=== PATIENT | female | born 1960 | race Caucasian/White ===

== ENCOUNTER 2018-11-28 18:14 | Emergency (ER) | payer BC, SELFPAY ==
[2018-11-28 18:14] VITALS: BP 183/102; PULSE 112; RESP 16; TEMP 36.6; O2SAT 99; BMI 34.4
[2018-11-28 19:16] LABS: Absolute Lymphocyte Count 1.78 X10^3/ul (0.83-4.51); Absolute Neutrophil Count 4.5 X10^3/uL (2.0-7.7); Basophil# 0.01 X10^3/uL; Basophil% 0.1 % (0-1); Eosinophil# 0.14 X10^3/uL; Hematocrit 40.6 % (37-47); Hemoglobin 13.4 g/dl (12.0-15.0); Lymphocyte # 1.78 X10^3/ul (4.0); Lymphocyte % 26.1 % (19-41); Mean Corpuscular Hgb 28.5 pg (27.0-32.0); Mean Corpuscular Volume 86.2 fL (81-99); Monocyte# 0.41 X10^3/uL; Neutrophil # 4.48 X10^3/uL (2.7-7.7); Neutrophil % 65.7 % (47-70); POSITIVE COUNT NO; POSITIVE DIFFERENTIAL NO; POSITIVE MORPHOLOGY NO; Platelet Count 245 K/mm3 (150-450); RBC Distribution Width CV 14.3 % (11.6-14.6); RBC Distribution Width SD 44.5 fl (35.1-43.9); Red Blood Count 4.71 M/mm3 (4.2-5.4); White Blood Count 6.8 K/mm3 (4.4-11.0)
[2018-11-28 19:27] LABS: Anion Gap 9 (5-15); BUN 21 mg/dL (7-18); BUN/Creat Ratio 17.9 RATIO (10-20); Chloride 107 mmol/L (98-107); Creatinine, Serum 1.17 mg/dL (0.55-1.02); EST Glomerular Filtration Rate 51 mL/min (>60); Est Glom Filt Rate - Afr Amer 62 mL/min (>60); Estimated Creatinine Clearance 52.21 ml/min; Glucose 102 mg/dL (74-106); Potassium 3.6 mmol/L (3.5-5.1); Sodium Level 142 mmol/L (136-145)
--- NOTE | 2018-11-28 19:45 | ED.DCSUM_ITS ---
- ER Visit Summary Date of Service: 11/28/18 Chief Complaint: Blood in stool History of Present Illness: The patient is a 58 F presenting with blood in stool. States this started today. She has had 4 episodes of loose stools with bright red blood per rectum. She denies lightheadedness or syncope. She is not on anticoagulants. She denies abdominal pain. Denies nausea, vomiting, diarrhea. Denies other complaints. She has a history of bleeding from a hemorrhoid in the past. Physical Examination: Vitals are stable. Patient is afebrile. Alert no acute distress. HEENT exam is unremarkable. Neck is supple. Lungs are clear and equal bilaterally. Heart is regular rate and rhythm. Abdomen is soft nontender nondistended. No guarding or rebound. Rectal: External hemorrhoid non-thrombosed, no active bleeding Extremities are unremarkable. Skin is warm and dry. No focal neurologic deficit. Remainder of exam is unremarkable. Emergency Department Course and Treatment: Patient is given IV fluids. CBC is unremarkable. Chemistries normal except for BUN 21, creatinine 1.17. Stool is guaiac negative. Patient has remained hemodynamically stable. Initially her heart rate was elevated. She states she has a history of anxiety when in the hospital. She feels well. She is able to ambulate to the bathroom without difficulty. She would prefer to go home with outpatient follow-up. Discussed with Dr. López. Patient will follow-up for an outpatient colonoscopy. She is advised signs and symptoms for which to return to ED. Disposition: Discharge home Impression: Hematochezia This note was generated with [employer] dictation software. It may contain incorrect words, spelling, and punctuation that were not noted in review of the chart prior to signing ED Disposition - Plan for ED Patient: Chief Complaint: GI Bleed Instructions: ED Hemorrhoids, ED Hematochezia Stable Referrals: Sloane Abernathy MD [Primary Care Provider] - Marcos Andrew MD [STAFF PHYSICIAN] -
[2018-11-28] MEDS: 0.9% Normal Saline 1,000 ML 999 ML IV (20:01)
[2018-11-28 20:33] VITALS: BP 171/101; PULSE 113; RESP 16; O2SAT 100
--- NOTE | 2018-11-28 21:10 | ED.DEP ---
ED Disposition - Plan for ED Patient: Chief Complaint: GI Bleed Instructions: ED Hemorrhoids, ED Hematochezia Stable Referrals: Sloane Abernathy MD [Primary Care Provider] - Marcos Andrew MD [STAFF PHYSICIAN] -
== END 2018-11-28 21:34 | disposition home or self-care (01) ==
PROVIDERS: Emergency Provider Emergency Medicine; Family Provider Family Medicine; PCP Family Medicine
DX: K92.1 Melena (principal); K64.4 Residual hemorrhoidal skin tags; I10 Essential (primary) hypertension; Z85.3 Personal history of malignant neoplasm of breast
CPT/HCPCS: 80048; 82274; 85025; 96360; 99283; J7030; A4216

== ENCOUNTER 2018-12-20 08:13 | Day surgery (SDC) | payer BC, SELFPAY ==
[2018-12-08 09:27] VITALS: BMI 34.4
[2018-12-20 08:36] VITALS: BP 168/82; PULSE 105; RESP 18; TEMP 37.1; O2SAT 95; BMI 34.0
--- NOTE | 2018-12-20 09:15 | COLBX_PTH ---
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 Marcos Andrew MD : 1960 BED: DIS: 12/20/2018 SPEC #: [id number] RECD: 12/20/18 09:36 STATUS: KATIE REAlexandro #: [id number] MARY: 12/20/18 09:[address]: Marcos Andrew DEPT: SURGICAL PATHOLOGY RECD BY: Brian Morley ENTERED: 12/20/18 11:03 SP TYPE: COLON BX OTHR DR: Dr. Sloane Abernathy MD Tissues: COLON BIOPSY Procedures: Surgery Specimen Level IV HEADER OPERATION: Colonoscopy PRE-OP DIAGNOSIS: Rectal bleeding TISSUE SUBMITTED: Random colon biopsies MICROSCOPIC DIAGNOSIS Colon, random biopsy: No pathologic diagnosis. AM:toshia 12/21/18 MICROSCOPIC DESCRIPTION Slides are reviewed. GROSS DESCRIPTION Received in fixative is one container labeled with the patient's name and designated random colon biopsy. The specimen consists of multiple irregular fragments of light jarquin soft tissue that in aggregate measure 1 x 0.3 x 0.1 cm. The specimen is totally submitted in one cassette. / AM:toshia 12/20/18 TC:5 CPT: 23559
[2018-12-20 09:18] VITALS: BP 105/65; BP 168/82; PULSE 96; RESP 18; TEMP 36.4; O2SAT 96
[2018-12-20 09:23] VITALS: BP 117/68; BP 168/82; PULSE 89; RESP 17; O2SAT 97
[2018-12-20 09:28] VITALS: BP 121/76; BP 168/82; PULSE 90; RESP 18; O2SAT 98
[2018-12-20 09:33] VITALS: BP 136/88; BP 168/82; PULSE 89; RESP 17; TEMP 36.6; O2SAT 99
[2018-12-20 09:50] VITALS: BP 168/82
--- NOTE | 2018-12-20 12:47 | OP.ENDO_ITS ---
Patient Name: Tamara Paul Procedure Date: 12/20/2018 8:58 AM Date of : 1960 Age: 58 Procedure: Colonoscopy Indications: Rectal bleeding Providers: Marcos Andrew MD Medicines: See the Anesthesia note for documentation of the administered medications Patient Profile: This is a 58 year old female. Refer to note in patient chart for documentation of history and physical. Last Colonoscopy: date unknown. Unable to locate last colonoscopy report. Complications: No immediate complications. Procedure: Pre-Anesthesia Assessment: - Prior to the procedure, a History and Physical was performed, and patient medications and allergies were reviewed. The patient's tolerance of previous anesthesia was also reviewed. The risks and benefits of the procedure and the sedation options and risks were discussed with the patient. All questions were answered, and informed consent was obtained. Prior Anticoagulants: The patient has taken no previous anticoagulant or antiplatelet agents. ASA Grade Assessment: II - A patient with mild systemic disease. After reviewing the risks and benefits, the patient was deemed in satisfactory condition to undergo the procedure. After I obtained informed consent, the scope was passed under direct vision. Throughout the procedure, the patient's blood pressure, pulse, and oxygen saturations were monitored continuously. The colonoscope was introduced through the anus and advanced to the cecum, identified by appendiceal orifice and ileocecal valve. The colonoscopy was performed without difficulty. The patient tolerated the procedure well. The quality of the bowel preparation was good. Scope In: 9:04:14 AM Scope Withdrawal Time 0 hours 6 minutes 3 seconds Scope Out: 9:14:46 AM Total Procedure Duration Time 0 hours 10 minutes 32 seconds Findings: The colon (entire examined portion) appeared normal. Biopsies for histology were taken with a cold forceps from the entire colon for evaluation of microscopic colitis. Non-bleeding internal hemorrhoids were found during retroflexion. The hemorrhoids were moderate and small. The exam was otherwise without abnormality. Impression: - The entire examined colon is normal. Biopsied. - Non-bleeding internal hemorrhoids. - The examination was otherwise normal. Recommendation: - Discharge patient to home. - Resume previous diet. - Continue present medications. - Await pathology results. - Repeat colonoscopy in 5 years for surveillance. - Return to my office in 1 week. Procedure Code(s): --- Professional --- 74854, Colonoscopy, flexible; with biopsy, single or multiple Diagnosis Code(s): --- Professional --- K64.8, Other hemorrhoids K62.5, Hemorrhage of anus and rectum CPT copyright 2017 [employer]. All rights reserved. The codes documented in this report are preliminary and upon documentation manager review may be revised to meet current compliance requirements. MD Marcos Collado MD 12/20/2018 9:19:54 AM This report has been signed electronically. Number of Addenda: 0 Note Initiated On: 12/20/2018 8:58 AM
--- OUTSIDE RECORDS SUMMARY | 2019-02-21 02:54 | XMS RPT_ITS ---
:1960 Author Organization [facility] Care Team Providers Name Role Phone Joana Valencia Attending Unavailable Jolliff, Sloane Primary Care Unavailable Marcos Andrew Attending Unavailable Michela Sloane Referring Unavailable Marcos Andrew Attending Unavailable Marcos Andrew Referring Unavailable Jolliff, Sloane Primary Care Unavailable Dr. Fito Cervantes Attending Unavailable Dr. Fito Cervantes Referring Unavailable Sloane Abernathy Primary Care Unavailable PROBLEMS PROBLEMS DATE TYPE CONDITION / CODE ATTENDING STATUS SOURCE 05/22/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 / D05.92(ICD-10) PROCEDURES PROCEDURES No Procedure Records FoundRESULTS RESULTS OPERATIVE REPORT - Observed: 12/20/2018 Status: F Source: [place] [facility] 12:47 PM [facility] REPOSITORY [facility] Medical Records Department [address] [place] [address] Operative Report - Endoscopy MR#: [id number] Acct: [id number] Name: TAMARA PAUL Rep #: [id number] : 1960 58 From: Marcos Andrew MD PCP: Sloane Abernathy MD Status: DEP [facility] Patient Name: Tamara Paul Procedure Date: 12/20/2018 8:58 AM Date of : 1960 Age: 58 Procedure: Colonoscopy Indications: Rectal bleeding Providers: Marcos Andrew MD Medicines: See the Anesthesia note for documentation of the administered medications Patient Profile: This is a 58 year old female. Refer to note in patient chart for documentation of history and physical. Last Colonoscopy: date unknown. Unable to locate last colonoscopy report. Complications: No immediate complications. Procedure: Pre-Anesthesia Assessment: - Prior to the procedure, a History and Physical was performed, and patient medications and allergies were reviewed. The patient's tolerance of previous anesthesia was also reviewed. The risks and benefits of the procedure and the sedation options and risks were discussed with the patient. All questions were answered, and informed consent was obtained. Prior Anticoagulants: The patient has taken no previous anticoagulant or antiplatelet agents. ASA Grade Assessment: II - A patient with mild systemic disease. After reviewing the risks and benefits, the patient was deemed in satisfactory condition to undergo the procedure. After I obtained informed consent, the scope was passed under direct vision. Throughout the procedure, the patient's blood pressure, pulse, and oxygen saturations were monitored continuously. The colonoscope was introduced through the anus and advanced to the cecum, identified by appendiceal orifice and ileocecal valve. The colonoscopy was performed without difficulty. The patient tolerated the procedure well. The quality of the bowel preparation was good. Scope In: 9:04:14 AM Scope Withdrawal Time 0 hours 6 minutes 3 seconds Scope Out: 9:14:46 AM Total Procedure Duration Time 0 hours 10 minutes 32 seconds Findings: The colon (entire examined portion) appeared normal. Biopsies for histology were taken with a cold forceps from the entire colon for evaluation of microscopic colitis. Non-bleeding internal hemorrhoids were found during retroflexion. The hemorrhoids were moderate and small. The exam was otherwise without abnormality. Impression: - The entire examined colon is normal. Biopsied. - Non-bleeding internal hemorrhoids. - The examination was otherwise normal. Recommendation: - Discharge patient to home. - Resume previous diet. - Continue present medications. - Await pathology results. - Repeat colonoscopy in 5 years for surveillance. - Return to my office in 1 week. Procedure Code(s): --- Professional --- 70123, Colonoscopy, flexible; with biopsy, single or multiple Diagnosis Code(s): --- Professional --- K64.8, Other hemorrhoids K62.5, Hemorrhage of anus and rectum CPT copyright 2017 [employer]. All rights reserved. The codes documented in this report are preliminary and upon certified professional coder review may be revised to meet current compliance requirements. MD Marcos Collado MD 12/20/2018 9:19:54 AM This report has been signed electronically. Number of Addenda: 0 Note Initiated On: 12/20/2018 8:58 AM 12/20/18 1246 Date Marcos Andrew MD Cosigner Signature: Date (if indicated) CC: Sloane Abernathy MD; Marcos Andrew MD Date Dictated: 12/20/18 0858 Date Transcribed: Hydrogenation Operator: DP Signed COLON BIOPSY (CHOOSE Observed: 12/20/2018 Status: F Source: [facility]) 9:15 AM [facility] REPOSITORY Patient: TAMARA PAUL : 1960 (58/F) Acct Num: [id number] Phys: Marcos Andrew MD Unit Num: [id number] Loc: EN Specimen: [id number] Received: 12/20/18935 Spec Type: COLON BX TISSUES 1 TISSUES: COLON BIOPSY GROSS DESCRIPTION Received in fixative is one container labeled with the patient's name and designated random colon biopsy. The specimen consists of multiple irregular fragments of light jarquin soft tissue that in aggregate measure 1 x 0.3 x 0.1 cm. The specimen is totally submitted in one cassette. / AM:rg 12/20/18 TC:5 CPT: 88585 HEADER OPERATION: Colonoscopy PRE-OP DIAGNOSIS: Rectal bleeding TISSUE SUBMITTED: Random colon biopsies MICROSCOPIC DESCRIPTION Slides are reviewed. MICROSCOPIC DIAGNOSIS Colon, random biopsy: No pathologic diagnosis. AM:toshia 12/21/18 Signed Mitul Huff, DO 12/21/18 <signature on file> Performed By: #### PCOLBX #### [facility] [address] [place], [address] SURGERY VISIT REPORT Observed: 12/11/2018 Status: F Source: [place] 12:07 PM [facility] REPOSITORY [facility] [address] [place] [address] OFFICE VISIT Date of Service: 12/08/18 MR#: [id number] Acct: [id number] Name: STEVECHASTITYDEMETRIUSTAMARA Rep #: [id number] : 1960 Provider: Marcos Andrew MD Age/Sex: 58/F Location: [facility] Status: Signed Intake Vital Signs12/08/18 Body Mass Index (BMI) 34.4 12/08/18 Height 5 ft 7 in 12/08/18 Weight: 218 lb Intake Visit Reasons: er f/up, rectal bleed Pari Mutuel Clerk Required: No Is patient in pain?: No Allergies Penicillins Allergy (Verified 12/08/18 09:19) Swelling tetracycline Allergy (Verified 12/08/18 09:19) Hives Medications Amlodipine Besylate 5 mg PO DAILY 10/18/16 [History Confirmed 12/08/18] Cetirizine HCl [Zyrtec] 10 mg PO DAILY 10/18/16 [History Confirmed 12/08/18] aspirin 81 mg tablet,delayed release 81 mg PO DAILY 12/08/18 [History Confirmed 12/08/18] calcium carbonate 600 mg calcium (1,500 mg) tablet 600 mg PO DAILY tab 12/08/18 [History Confirmed 12/08/18] omega-3 fatty acids 1,000 mg capsule PO cap 12/08/18 [History Confirmed 12/08/18] PFSH Medical History Hemorrhoids (Acute) History of breast cancer (Acute) Rectal bleed (Acute) Hypertension (Chronic) Surgical History H/O: hysterectomy (Acute) History of lumpectomy of left breast (Acute) History of tonsillectomy (Acute) Family History Father Colon cancer Hypertension Kidney disease Social History Smoking Status: Never smoker alcohol intake: never substance use type: does not use HPI HPI HPI: TAMARA PAUL, is a 58 F who presents to the office today for evaluation for rectal bleeding. Patient was seen in the emergency department at [facility] on November 28, 2018. She stated that it started that day and she had 4 episodes of loose stools with bright red blood per rectum. She was not having any lightheadedness nor syncope. She is not on any anticoagulations. She was denying abdominal pain she had no nausea vomiting. In the emergency department she was noted to have a BUN of 21 and a creatinine of 1.17 The emergency room set up a follow-up with Dr. López the patient decided to follow-up with me instead. ROS General General: Yes breast cancer; no weight change, appetite, fatigue, colon cancer or weakness HEENT HEENT: No difficulty swallowing, eye injury, eye surgery, swollen glands or hoarseness Endo Endocrine: No thyroid disease, diabetes mellitus, thyroid cancer, Hair loss, heat intolerance or cold intolerance Skin Skin: No rash or changing moles Breast Breast: No left breast lump, right breast lump, nipple discharge, breast pain, abnormal mammogram, abnormal US or breast enlargement Musc Musculoskeletal: No back problems, arthritis, rheumatoid arthritis, gout or joint pain Cardio Cardiovascular: Yes high blood pressure; no murmur, pacemaker, heart disease, atrial fibrillation, heart attack, heart stent, palpitations, shortness of breat with exertion or chest pain Psych Psychiatric: No depression, anxiety or hearing voices Resp Respiratory: No shortness of breath, No sleep apnea, No cough, No COPD, No asthma, No emphysema, No wheezing Gastro Gastrointestinal: No abdominal pain, No nausea or vomiting, No diarrhea, No constipation, No blood in stool, No acid reflux, Yes hemorrhoids, No ulcers, No gallbladder problem, No black,tarry stools Casey Hematologic: No blood thinners, No blood disorders, No bleeding, No anemia, No blood clots Neuro Neurologic: No system reviewed and no additional complaints, except as docu, No as per HPI, No abnormal walking, No abnormal hearing, No abnormal movements, No abnormal speech, No behavioral changes, No burning sensations, No confusion, No seizure-like activity, No unsteadiness, No dizziness, No localized weakness, No frequent falls, No headache(s), No lack of coordination, No loss of vision, No memory loss, No numbness, No other visual disturbances, No radiating pain, No restless legs, No sensory deficit, No fainting, No tingling, No tremor(s), No weakness, Yes other (stroke/TIA) Exam Const General: well developed, no acute distress, well hydrated Orientation: oriented to person, oriented to place, oriented to time [facility] Head: normocephalic, atraumatic Ears: external ears normal Mouth: moist mucous membranes Eyes Sclera: sclerae normal Pupils: normal by confrontation Neck Neck: no lymphadenopathy noted Neck mass: No Thyroid: symmetrical, thyroid normal Chest Chest palpation AND inspection: normal inspection of the chest Breast Palpation: No nipple discharge Resp Effort AND Inspection: normal respiratory effort Auscultation: clear to auscultation bilaterally Percussion: percussion normal Cardio Rate: regular rate Rhythm: regular rhythm Heart Sounds: no murmurs GI Palpation: soft, no masses, no hepatosplenomegaly, nontender Rectal Exam: other Other: Rectal exam deferred. Extrem General: no clubbing, cyanosis or edema, normal to inspection Assessment AND Plan Problems 1. Rectal bleeding K62.5 Plan I have discussed the above with the patient. I have offered the patient colonoscopy for evaluation. I have explained the risks/benefits of the procedure and described the procedure. I have discussed the risks with the patient, including but not limited to: infection, bleeding, perforation of the GI tract requiring emergency surgery, inability to complete the procedure, injury to any internal organs, complications of anesthesia, etc. - the patient understands and agrees to proceed. I have answered all the patient's questions to the patient's satisfaction and the patient has no further questions. The patient has been given instructions for the colon cleansing preparation. Coding Level of Care Code Off vis,new,level 3 Diagnoses Rectal bleeding K62.5 12/11/18 1207 <Electronically signed by Marcos Andrew MD> Date Marcos Andrew MD Cosigner Signature: Date (if applicable) CC: Sloane Abernathy MD EMERGENCY DEPARTMENT Observed: 11/28/2018 Status: F Source: [place] SUMMARY 9:18 PM [facility] REPOSITORY [facility] Medical Records Department [address] [place] [address] Emergency Department Summary 11/28/18 1944 MR#: [id number] Acct: [id number] Name: TONI PAULALYSSA Storey Rep #: [id number] : 1960 58 From: Joana Valencia MD PCP: Sloane Abernathy MD Status: REG ER - ER Visit Summary Date of Service: 11/28/18 Chief Complaint: Blood in stool History of Present Illness: The patient is a 58 F presenting with blood in stool. States this started today. She has had 4 episodes of loose stools with bright red blood per rectum. She denies lightheadedness or syncope. She is not on anticoagulants. She denies abdominal pain. Denies nausea, vomiting, diarrhea. Denies other complaints. She has a history of bleeding from a hemorrhoid in the past. Physical Examination: Vitals are stable. Patient is afebrile. Alert no acute distress. HEENT exam is unremarkable. Neck is supple. Lungs are clear and equal bilaterally. Heart is regular rate and rhythm. Abdomen is soft nontender nondistended. No guarding or rebound. Rectal: External hemorrhoid non-thrombosed, no active bleeding Extremities are unremarkable. Skin is warm and dry. No focal neurologic deficit. Remainder of exam is unremarkable. Emergency Department Course and Treatment: Patient is given IV fluids. CBC is unremarkable. Chemistries normal except for BUN 21, creatinine 1.17. Stool is guaiac negative. Patient has remained hemodynamically stable. Initially her heart rate was elevated. She states she has a history of anxiety when in the hospital. She feels well. She is able to ambulate to the bathroom without difficulty. She would prefer to go home with outpatient follow-up. Discussed with Dr. López. Patient will follow-up for an outpatient colonoscopy. She is advised signs and symptoms for which to return to ED. Disposition: Discharge home Impression: Hematochezia This note was generated with [employer] dictation software. It may contain incorrect words, spelling, and punctuation that were not noted in review of the chart prior to signing ED Disposition - Plan for ED Patient: Chief Complaint: GI Bleed Instructions: ED Hemorrhoids, ED Hematochezia Stable Referrals: Sloane Abernathy MD [Primary Care Provider] - Marcos Andrew MD [STAFF PHYSICIAN] - What to do if you have Problems For any increased pain, shortness of breath, bleeding, nausea or vomiting, chest pain, or any unexpected problems, contact your Primary Care Provider. Call [facility] ([phone]) or report to the closest Emergency Room. Call 911 if necessary. 11/28/182117 <Electronically signed by Joana Valencia MD> Date Joana Valencia MD Cosigner Signature (If Indicated): Date CC: Sloane Abernathy MD DISCHARGE INSTRUCTION Observed: 11/28/2018 Status: F Source: [place] 9:10 PM [facility] REPOSITORY [facility] Medical Records Department [address] [place] [address] Discharge Instruction 11/28/182109 MR#: [id number] Acct: [id number] Name: TAMARA PAUL Cordelia Rep #: [id number] : 1960 58 From: Joana Valencia MD PCP: Sloane Abernathy MD Status: REG ER ED Disposition - Plan for ED Patient: Chief Complaint: GI Bleed Instructions: ED Hemorrhoids, ED Hematochezia Stable Referrals: Sloane Abernathy MD [Primary Care Provider] - Marcos Andrew MD [STAFF PHYSICIAN] - What to do if you have Problems For any increased pain, shortness of breath, bleeding, nausea or vomiting, chest pain, or any unexpected problems, contact your Primary Care Provider. Call [facility] ([phone]) or report to the closest Emergency Room. Call 911 if necessary. 11/28/182109 <Electronically signed by Joana Valencia MD> Date Joana Valencia MD Cosigner Signature (If Indicated): Date CC: Sloane Abernathy MD Observed: 11/28/2018 Status: F Source: [place] STOOL OCCULT BLOOD 7:19 PM [facility] IFOB REPOSITORY STOB iFOB Occult Blood Negative Performed By: #### M100.7900 #### [facility] [address] [place], [address] CBC W/DIFF, AUTOMATED Collected: 11/28/2018 Status: F Source: [place] 7:06 PM [facility] REPOSITORY TYPE CODE TESTS RESULT OUT OF RANGE REFERENCE UNITS LAB L100.1000 4.4-11.0 K/mm3 Normal WBC 6.8 LAB L100.1200 4.2-5.4 M/mm3 Normal RBC 4.71 LAB L100.1300 12.0-15.0 g/dl Normal HGB 13.4 LAB L100.1400 37-47 % Normal HCT 40.6 LAB L100.1500 81-99 fL Normal MCV 86.2 LAB L100.1600 27.0-32.0 pg Normal MCH 28.5 LAB L100.1700 32-36 g/gl Normal MCHC 33.0 LAB L100.1810 11.6-14.6 % Normal RDW CV 14.3 LAB L100.1820 35.1-43.9 fl High RDW SD 44.5 LAB L100.1900 150-450 K/mm3 Normal PLT 245 LAB L100.2000 6.2-12.0 fl Normal MPV 10.0 LAB L100.2100 47-70 % Normal NEUT% 65.7 LAB L100.2200 19-41 % Normal LY% 26.1 LAB L100.2300 0-10 % Normal MONO% 6.0 LAB L100.2400 0-5 % Normal EO% 2.0 LAB L100.2500 0-1 % Normal BASO% 0.1 LAB L100.2550 0.0-0.9 % Normal IM GRAN % 0.100 Result Comment: IG% - Immature Granulocytes (promyelocytes, myelocytes and metamyelocytes) > 1% indicates that a LEFT SHIFT is Present. LAB L100.2620 2.0-7.7 X10 3/uL Normal Absolute Neut 4.5 LAB L100.2720 0.83-4.51 X10 3/ul Normal Absolute Lymph 1.78 Performed By: #### L100.0100 #### [facility] [address] [place], [place], [address] BASIC METABOLIC Collected: 11/28/2018 Status: F Source: [place] PROFILE (BMP) 7:06 PM [facility] REPOSITORY TYPE CODE TESTS RESULT OUT OF RANGE REFERENCE UNITS LAB L501.0100 74-106 mg/dL Normal GLU 102 Result Comment: Fasting Glucose result from 100 to 125 mg/dL suggests IMPAIRED HOMEOSTASIS per A.D.A. criteria. Please note revised GLUCOSE reference range effective 2017. LAB L501.1000 7-18 mg/dL High BUN 21 LAB L501.1100 0.55-1.02 mg/dL High CREAT,SERUM 1.17 Result Comment: The validity of the calculated GFR AND GFRAA in patients over 70 years has not been determined. Clinical correlation is essential. LAB L501.1110 >60 mL/min Low EST GFR 51 Result Comment: Non- GFR Calc LAB L501.1115 >60 mL/min Normal EST GFR - AA 62 Result Comment: GFR Calc LAB L501.1255 ml/min Normal Estimated CRCL 52.21 LAB L501.1300 10-20 RATIO Normal BUN/CRE 17.9 LAB L501.2200 8.5-10 mg/dL Normal .1 CA 9.0 LAB L501.5300 136-14 mmol/L Normal 5 NA 142 LAB L501.5600 3.5-5. mmol/L Normal 1 K 3.6 LAB L501.5900 98-107 mmol/L Normal CL 107 LAB L501.6100 21.0-3 mmol/L Normal 2.0 CO2 26.0 LAB L501.6200 5-15 Normal GAP 9 Performed By: #### L500.2500 #### [facility] [address] [place], [place], [address] BREAST ULTRASOUND Observed: 05/22/2018 Status: F Source: [place] 4:13 PM [facility] REPOSITORY Patient Name: TAMARA PAUL STUDY: DIGITAL DIAG MAMM BILAT WITH KRISTEN; BREAST ULTRASOUND; 05/22/2018 3:52 pm; 05/22/2018 4:13 pm ACCESSION NUMBER(S): [id number]; [id number] ORDERING CLINICIAN: FITO CERVANTES INDICATION: Signs/Symptoms: hx of left breast cancer.Feels a lump.; MM040. Strong family history of breast cancer, mother diagnosed age 62. Personal history of left breast cancer status post lumpectomy and radiation therapy in 2002. Patient complains of a new nontender right breast lump times several days. COMPARISON: 11/30/2016 and 11/03/2015 FINDINGS: 2D and tomosynthesis images were reviewed at 1 mm slice thickness. The breast tissue is heterogeneously dense, which may obscure small masses. The patient placed a BB overlying the lateral anterior breast, which is the site of the palpable lump. There is no suspicious mammographic finding. No suspicious masses or calcifications are identified bilaterally. Right breast ultrasound. Targeted ultrasound with elastography was performed. Ultrasound was performed by both the trained teacher education instructor and Dr. Parikh. At the site of palpable concern at 8:30 3 cm from the nipple, there is duct ectasia which extends to the subdermal region. Negative for an intraductal mass. The duct is avascular and is soft on elastography. This correlates with the palpable lump. There are other adjacent mildly ectatic ducts in this region. IMPRESSION: No mammographic evidence of malignancy . The area of palpable concern in the right breast corresponds with a benign ectatic duct. Recommend the patient return to annual screening mammography. BI-RADS CATEGORY: Category: 2 - Benign. Recommendation: 1 Year Screening. Patient letter sent SNORMS Electronically signed by: COMFORT PARIKH MD DIGITAL DIAG MAMM Observed: 05/22/2018 Status: F Source: [facility] WITH [facility]ST[facility] 3:52 PM HOSPITALS REPOSITORY Patient Name: TAMARA PAUL STUDY: DIGITAL DIAG MAMM BILAT WITH KRISTEN; BREAST ULTRASOUND; 05/22/2018 3:52 pm; 05/22/2018 4:13 pm ACCESSION NUMBER(S): [id number]; [id number] ORDERING CLINICIAN: FITO CERVANTES INDICATION: Signs/Symptoms: hx of left breast cancer.Feels a lump.; MM040. Strong family history of breast cancer, mother diagnosed age 62. Personal history of left breast cancer status post lumpectomy and radiation therapy in 2002. Patient complains of a new nontender right breast lump times several days. COMPARISON: 11/30/2016 and 11/03/2015 FINDINGS: 2D and tomosynthesis images were reviewed at 1 mm slice thickness. The breast tissue is heterogeneously dense, which may obscure small masses. The patient placed a BB overlying the lateral anterior breast, which is the site of the palpable lump. There is no suspicious mammographic finding. No suspicious masses or calcifications are identified bilaterally. Right breast ultrasound. Targeted ultrasound with elastography was performed. Ultrasound was performed by both the trained teacher education instructor and Dr. Parikh. At the site of palpable concern at 8:30 3 cm from the nipple, there is duct ectasia which extends to the subdermal region. Negative for an intraductal mass. The duct is avascular and is soft on elastography. This correlates with the palpable lump. There are other adjacent mildly ectatic ducts in this region. IMPRESSION: No mammographic evidence of malignancy . The area of palpable concern in the right breast corresponds with a benign ectatic duct. Recommend the patient return to annual screening mammography. BI-RADS CATEGORY: Category: 2 - Benign. Recommendation: 1 Year Screening. Patient letter sent SNORMS Electronically signed by: COMFORT PARIKH MD ALLERGIES ALLERGIES DATE TYPE / CODE NAME / CODE REACTION SEVERITY SOURCE 12/18/2018 Drug Penicillins/ Swelling Unknown [facility] Allergy/4160 [id number]( Hospital 81612(SNOMED XNORM) Repository CT) 12/18/2018 Drug tetracycline Hives Unknown [facility] Allergy/4160 /[id number]( Hospital 06221(SNOMED RXNORM) Repository CT) ENCOUNTERS ENCOUNTERS ADMIT/DISCHARGE ACCOUNT ADMITTING ENCOUNTER LOCATION SOURCE NUMBER CLASS 12/20/2018/12/20/19 [id number] Ambulatory [facility] ing:ENRoom: Repository AC17 12/08/2018/12/08/19 [id number] Ambulatory BMSBuilding:B [facility] [place] 11/28/2018/11/28/19 [id number] Emergency [place] [facility] ing:ED Repository 05/22/2018 [id number] Ambulatory [facility] Repository PAYERS PAYERS ENCOUNTER GUARANTOR PAYER SUBSCRIBER SOURCE 12/20/2018 TAMARA Storey Primary BRIAN D [facility] [id number] Insurance:ANTHEMPolic [place] [facility] [place]: [id number] [id number] Repository [address]Nvn: (330) Date:1689-20-03[phone] () [address] [place] [address]PF: 12/20/2018 Secondary NOT GIVENUNK [facility] Insurance:SELF PAY [facility] Number: Effective Repository Date:2018-12-08 12/08/2018 TAMARA D Primary BRIAN D [facility] [id number] Insurance:ANTHEMPolic [place] [facility] [place]: [id number] [id number] Repository [address]Rvy: ([phone]) Date:6821-19-37[phone] () [address] [place] [address] 36549TZ: 12/08/2018 Secondary NOT GIVENUNK [place] Insurance:SELF PAY [facility] [facility] Number: Effective Repository Date:2018-12-07 11/28/2018 [facility] Cordelia RobersonLakeshia [id number] Insurance:MEDICAL ARGABRITEDOB: [place] [id number] [facility] Number[place] Repository [id number]: [phone] [id number] [phone] () Date:[id number] [place] [id number]: 11/28/2018 Secondary NOT GIVENUNK Hostetter Insurance:SELF PAY [facility] Number: Effective Repository Date:2018-11-28 05/22/2018 [facility] ARGABRITEDOB: Insurance:Medical ARGABRITEDOB: [facility] [id number] [facility] Number: [place] [id number]: Date:Plan Name:Health ()
== END 2018-12-20 09:59 | disposition home or self-care (01) ==
LOC: EN 08:14 → AC 08:15
PROVIDERS: Family Provider Family Medicine; PCP Family Medicine; Referring Provider Surgery; Visit Provider Surgery
PROC: 0DJD8ZZ Inspection of Lower Intestinal Tract, Via Natural or Artificial Opening Endoscopic (ICD-10-PCS; CPT 45378; principal; 2018-12-20 09:10)
DX: K62.5 Hemorrhage of anus and rectum (principal); K64.8 Other hemorrhoids; K21.9 Gastro-esophageal reflux disease without esophagitis; Z85.3 Personal history of malignant neoplasm of breast; I10 Essential (primary) hypertension; Z86.73 Personal history of transient ischemic attack (TIA), and cerebral infarction without residual deficits
CPT/HCPCS: 45380; 88305; J7120

== ENCOUNTER → 2019-02-17 08:30 | Outpatient (CLI) | payer BC, SELFPAY ==
[2019-02-13 07:46] VITALS: BMI 34.0
--- NOTE | 2019-02-17 | IMM_PTH ---
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 Marcos Andrew MD : 1960 BED: DIS: SPEC #: [id number] RECD: 02/20/19 11:51 STATUS: KATIE REQ #: [id number] MARY: 02/17/19 00:[address]: Marcos Andrew DEPT: IMMUNOHISTOCHEMISTRY RECD BY: Tania Vasquez ENTERED: 02/20/19 11:52 SP TYPE: IMMUNO OTHR DR: Dr. Sloane Abernathy MD Tissues: Skin of leg, NOS Procedures: SMA (add) Vimentin (add) SMM (add) Pankeratin (initial) P40 (add) S-100 (add) PHYSICIAN & INSTITUTION [place] [id number] SPECIMEN INFORMATION: Tissue Source: Left lower leg lesion, excision Clinical Info: Lesion of subcutaneous tissue Specimen Number: [id number] CPT code: 41856, 26301 x5 METHODOLOGY: Deparaffinized sections of prefer/formalin-fixed tissue or PAP/DQ stained slides are incubated with monoclonal/polyclonal antibodies/oligonucleotide probes. Localization is made via biotin free immunoperoxidase method. Appropriate controls are performed and reacted as expected. Results on target cell population are indicated in the following table: RESULTS: ANTIBODY / CLONE RESULT AE1-3 (AE1/AE3/PCK26) negative S-100 (4C4.9) negative Vimentin (V9) positive Actin (1A4) negative Myosin (simms1) negative P40 (BC28) negative These tests were developed and their performance characteristics determined by [facility]. They may not have been cleared or approved by the [place]. Food and Drug Administration. The FDA has determined that such clearance or approval is not necessary. INTERPRETATION: Left lower leg lesion, excision: Consistent with dermatofibroma AM:nory 02/20/19
--- NOTE | 2019-02-17 08:30 | LES_PTH ---
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 Marcos Andrew MD : 1960 BED: DIS: SPEC #: [id number] RECD: 02/17/19 10:52 STATUS: KATIE DEBORAH #: [id number] MARY: 02/17/19 08:[address]: Marcos Andrew DEPT: SURGICAL PATHOLOGY RECD BY: Brian Morley ENTERED: 02/19/19 12:49 SP TYPE: Lesion OTHR DR: Dr. Sloane Abernathy MD Tissues: Skin of leg, NOS Procedures: Surgery Specimen Level IV HEADER OPERATION: Excision left lower leg lesion PRE-OP DIAGNOSIS: Lesion of subcutaneous tissue L98.9 TISSUE SUBMITTED: Left lower leg lesion MICROSCOPIC DIAGNOSIS Lesion of left lower leg, biopsy: Consistent with dermatofibroma. AM:toshia 02/20/19 COMMENT Immunohistochemistry ([id number]) supports the above diagnosis. Case has been reviewed in consultation with Dr. Jimenez who concurs with the above diagnosis. IDC:MARIN MICROSCOPIC DESCRIPTION Slides are reviewed. GROSS DESCRIPTION Received in fixative is one container labeled with the patient's name and designated left lower leg lesion. The specimen consists of a piece of jarquin-white skin with underlying tissue measuring 1 x 0.8 cm and up to 0.5 cm in thickness. There is a brown lesion on the surface measuring 0.5 cm in diameter. The specimen is inked, serially sectioned and submitted entirely in one cassette. / MARIN:toshia 02/19/19 TC:1 CPT: 35054
== END ==
PROVIDERS: Family Provider Family Medicine; PCP Family Medicine; Referring Provider Surgery; Visit Provider Surgery
DX: L98.9 Disorder of the skin and subcutaneous tissue, unspecified (principal)
CPT/HCPCS: 88305; 88341; 88342

== ENCOUNTER → 2019-07-11 10:20 | Outpatient (CLI) | payer BC, SELFPAY ==
[2019-02-13 07:46] VITALS: BMI 34.0
[2019-07-11 12:38] LABS: Anion Gap 7 (5-15); BUN 13 mg/dL (7-18); Calcium,Total 9.3 mg/dL (8.5-10.1); Chloride 104 mmol/L (98-107); Creatinine, Serum 0.76 mg/dL (0.55-1.02); EST Glomerular Filtration Rate 83 mL/min (>60); Est Glom Filt Rate - Afr Amer 101 mL/min (>60); Glucose 91 mg/dL (74-106); Potassium 3.3 mmol/L (3.5-5.1); Sodium Level 139 mmol/L (136-145)
== END ==
PROVIDERS: Family Provider Family Medicine; PCP Family Medicine; Referring Provider Family Medicine; Visit Provider Family Medicine
DX: I10 Essential (primary) hypertension (principal)
CPT/HCPCS: 36415; 80048

== ENCOUNTER → 2020-11-26 16:09 | Outpatient (CLI) | payer BC, SELFPAY ==
[2019-02-13 07:46] VITALS: BMI 34.0
[2020-11-26 18:10] LABS: Anion Gap 6 (5-15); BUN 13 mg/dL (7-18); BUN/Creat Ratio 17.1 RATIO (10-20); Calcium,Total 9.2 mg/dL (8.5-10.1); Chloride 106 mmol/L (98-107); Creatinine, Serum 0.76 mg/dL (0.55-1.02); EST Glomerular Filtration Rate 83 mL/min (>60); Est Glom Filt Rate - Afr Amer 101 mL/min (>60); Glucose 90 mg/dL (74-106); Potassium 3.6 mmol/L (3.5-5.1); Sodium Level 139 mmol/L (136-145)
== END ==
PROVIDERS: PCP Family Medicine; Visit Provider Family Medicine
DX: I10 Essential (primary) hypertension (principal)
CPT/HCPCS: 36415; 80048

== ENCOUNTER 2020-12-04 03:00 | Emergency (ER) | payer BC, SELFPAY ==
[2019-02-13 07:46] VITALS: BMI 34.0
[2020-12-04 03:00] VITALS: BP 162/94; PULSE 111; RESP 16; TEMP 36.9; O2SAT 98; BMI 35.6
[2020-12-04 03:03] VITALS: BP 162/94; PULSE 111; RESP 16; TEMP 36.9; O2SAT 98
--- NOTE | 2020-12-04 03:09 | ED.VIS.GEN ---
History of Present Illness Chief Complaint: Complaint Detail of Chief Complaint: Dysuria, frequency and hematuria Informant: Patient Onset: Yesterday Context: Sudden Onset Timing: Intermittent Quality: Frequency, dysuria and hematuria Location: With urination Current Severity: Not present unless patient is urinating Maximum Severity: Moderate Worsened by: Urination Relieved by: Not urinating Associated Symptoms: No constitutional, GI or back pain Narrative: Patient is a 60-year-old woman with history hypertension, ureterolithiasis and urinary tract infection who presents with dysuria, frequency and hematuria. She denies back pain or flank pain. She denies suprapubic discomfort. She feels pressure when she urinates. She denies fever or chills. She denies nausea or vomiting. She denies rash. She has no other complaints. Prior similar symptoms: Yes Recent Illness/Hospitalization: No - Past Medical History (1) History of hypertension Status: Acute (2) History of kidney stones Status: Acute (3) History of urinary tract infection Status: Acute Past Medical History - Allergies and Home Meds Allergies/Adverse Reactions: Allergies Penicillins Allergy (Verified 12/04/20 03:05) Swelling tetracycline Allergy (Verified 12/04/20 03:05) Hives Primary Care Physician: Sloane Abernathy MD [Primary Care Provider] - Prior records reviewed: Yes Surgical History: noncontributory Lives: With Family Smoking Status: Never smoker Alcohol: None Drugs: None Review of Systems General: Denies: Chills, Fever, Malaise, Subjective Gastrointestinal: Denies: Abdominal pain, Nausea, Vomiting, Diarrhea Genitourinary: Reports: Dysuria, Hematuria, Frequency Musculoskeletal: Denies: Myalgias, Arthralgias, Neck pain, Back pain, Swelling, Extremity Pain Skin: Denies: Rash, Wounds Physical Exam Vital Signs/Narrative: Vital Signs Temp Pulse Resp BP Pulse Ox 12/04/20 03:03 98.5 F 111 H 16 162/94 H 98 12/04/20 03:00 98.5 F 111 H 16 162/94 H 98 Inital Vital Signs reviewed: Yes General: Well nourished, Well developed, Obese Head: Normocephalic, Atraumatic Eyes: Perrl Cardiovascular: Regular rate, Regular rhythm, No murmurs, Normal S1, Normal S2 Respiratory: No distress, CTA bilaterally, Chest nontender Abdomen: Soft, Nontender, Nondistended, Normal bowel sounds, No masses Back: Nontender. Negative for: CVA tenderness Skin: Normal color, No rash Neurological: Alert, Oriented x3, Cranial nerves II-XII grossly intact, Normal Strength, Normal Sensation, Normal Gait Psychological: Normal affect Diagnostic/Tx/Re-eval Laboratory Results 12/04/20 03:08 Urine Color Red Urine Clarity Turbid Urine pH 7.0 Ur Specific [place] 1.015 Urine Protein 100 H Urine Glucose (UA) Normal Urine Ketones 5 H Urine Occult Blood 250 H Urine Nitrite Negative Urine Bilirubin Negative Urine Urobilinogen Normal Ur Leukocyte Esterase 500 H Urine RBC > 100 SEEN Urine WBC 25-50 SEEN Ur Squamous Epith Cells 0 SEEN Urine Bacteria 0 SEEN Urine Mucus 0 SEEN Patient does have evidence of pyuria. There is no bacteria. There may be no bacteria because patient is urinating every 15 to 30 minutes. Will treat with Macrobid and Pyridium. - Medical Decision Making Patient clinically has hemorrhagic cystitis. Will obtain UA to confirm. UA may not be classic since patient reports urinating every 15 to 30 minutes. Since she has no systemic symptoms laboratory tests were not obtained. ED Disposition - Plan for ED Patient: Disposition: Home or Assisted Living Diagnosis: Acute hemorrhagic cystitis Instructions: ED Bladder Infection, Female (Adult) Prescriptions: Nitrofurantoin Macrocrystals [Macrobid] 100 mg PO Q12 #10 cap Transmission Status: Pending to [facility] Phenazopyridine HCl [Pyridium] 200 mg PO TID #10 tab Transmission Status: Pending to [facility] Referrals: Sloane Abernathy MD [Primary Care Provider] - 3-5 Days if not improving
[2020-12-04 03:12] LABS: Bacteria 0 SEEN /hpf (None Seen); Mucous, Urine 0 SEEN /hpf (<or=2+); Squamous Epithelial Cells - UA 0 SEEN /hpf (5-10)
[2020-12-04 03:14] LABS: Color, Urine Red (Yellow); Glucose, Dipstick Normal (Normal); Ketone-Dipstick 5 mg/dl (Negative); Leukocyte Esterase-Dipstick 500 /ul (Negative); Nitrite-Dipstick Negative (Negative); Occult Blood-Urine 250 /ul (Negative); Protein-Dipstick 100 mg/dl (Negative); Specific Gravity, Urine 1.015 (1.002-1.030); Urine Bilirubin Dipstick Negative (Negative); Urine Clarity Turbid (Clear); Urine Urobilinogen Normal (Normal)
[2020-12-04 03:19] LABS: Red Blood Cells-Urine > 100 SEEN /hpf (0-5); White Blood Cells 25-50 SEEN /hpf (0-5)
[2020-12-04] MEDS: Nitrofurantoin Macrocrystals 100 MG Capsule PO (03:23)
[2020-12-04] MEDS: Phenazopyridine 95 MG Tablet 190 MG PO (03:23)
--- NOTE | 2020-12-04 03:31 | ED.VISSUMM ---
- ER Visit Summary Date of Service: 12/04/20 Chief Complaint: [] History of Present Illness: The patient is a 60 F [] Physical Examination: [] Test Results: [] Emergency Department Course and Treatment: [] Treatment Plan: [] Disposition: [] Impression: [] This note was generated with [employer] dictation software. It may contain incorrect words, spelling, and punctuation that were not noted in review of the chart prior to signing ED Disposition - Plan for ED Patient: Disposition: Home or Assisted Living Diagnosis: Acute hemorrhagic cystitis Instructions: ED Bladder Infection, Female (Adult) Prescriptions: Nitrofurantoin Macrocrystals [Macrobid] 100 mg PO Q12 #10 cap Transmission Status: Pending to [facility] Phenazopyridine HCl [Pyridium] 200 mg PO TID #10 tab Transmission Status: Pending to [facility] Referrals: Sloane Abernathy MD [Primary Care Provider] - 3-5 Days if not improving
== END 2020-12-04 03:33 | disposition home or self-care (01) ==
LOC: ED 03:25
PROVIDERS: Emergency Provider Emergency Medicine; PCP Family Medicine
DX: N30.01 Acute cystitis with hematuria (principal); I10 Essential (primary) hypertension; Z87.442 Personal history of urinary calculi; Z88.0 Allergy status to penicillin
CPT/HCPCS: 81001; 87086; 87088; 87186; 99283

== ENCOUNTER 2021-02-10 16:38 | Outpatient (RCR) | payer BC, SELFPAY ==
[2021-02-10] MEDS: COVID-19 VACC, MRNA(PFIZER)/PF 30 MCG/0.3 ML SYRINGE IM (17:09)
[2021-03-03] MEDS: COVID-19 VACC, MRNA(PFIZER)/PF 30 MCG/0.3 ML SYRINGE IM (16:51)
== END 2021-02-10 23:59 ==
LOC: IMMUN 16:38
PROVIDERS: Visit Provider Family Medicine
DX: Z23 Encounter for immunization (principal)
CPT/HCPCS: 0001A; 0002A; 91300

== ENCOUNTER 2021-10-19 23:08 | Emergency (ER) | payer OTHER, SELFPAY ==
[2021-10-19 23:08] VITALS: BP 169/88; PULSE 96; RESP 18; TEMP 36.4; O2SAT 100; BMI 34.9
[2021-10-19 23:10] VITALS: BP 169/88; PULSE 96; RESP 18; TEMP 36.4; O2SAT 100
--- NOTE | 2021-10-19 23:24 | EDS_ITS ---
HPI History of Present Illness Chief Complaint: Complaint Narrative Narrative: Patient is a 60-year-old female who states over the last 1 to 2 days she has noticed increased urinary frequency urgency and dysuria. She denies any vaginal discharge or bleeding concern for vaginal infection. She denies any fevers or chills or flank pain. She states she feels like her symptoms have steadily worsened over the past 24 hours and with concern for infection presents for evaluation. [facility] Medical History Hemorrhoids History of breast cancer History of kidney stones Hypertension Rectal bleed Home Medications amlodipine 5 mg PO DAILY 10/18/16 [History Last Taken 12/20/18 06:45] cetirizine [Zyrtec] 10 mg PO DAILY 10/19/21 [History Last Taken Unknown] multivitamin 1 tab PO DAILY 10/19/21 [History Last Taken Unknown] phenazopyridine [Pyridium] 200 mg PO TID 2 Days #6 tab 10/20/21 [Rx Last Taken Unknown] sulfamethoxazole-trimethoprim [Bactrim DS] 1 tab PO BID 5 Days #10 tab 10/20/21 [Rx Last Taken Unknown] Allergy/AdvReac Type Severity Reaction Status Date / Time Penicillins Allergy Swelling Verified 10/19/21 23:10 tetracycline Allergy Hives Verified 10/19/21 23:10 Family History Father Colon cancer Hypertension Kidney disease Surgical History (Updated 12/04/20 @ 03:[address] Ancelmo Bland MD) H/O: hysterectomy History of lumpectomy of left breast History of tonsillectomy Social History (Updated 03/02/19 @ 12:[address] Marcos Andrew MD) Smoking Status: Never smoker alcohol intake: never substance use type: does not use ROS ROS ED Constitutional Constitutional ED: Denies chills or fever(s) ENT ENT ED: Denies sore throat Cardiovascular Cardiovascular: Denies chest pain Respiratory/Chest Respiratory/Chest: Denies cough or dyspnea Gastrointestinal Gastrointestinal: Denies abdominal pain, diarrhea, nausea or vomiting Genitourinary Genitourinary ED: Reports dysuria and urinary frequency; Denies hematuria Musculoskeletal Musculoskeletal: Denies back pain or myalgias Integumentary Denies rash Neurologic Neurologic: Denies headache(s) EXAM Physical Exam Const Vital Signs: 10/19/21 23:08 10/19/21 23:10 Temperature 97.5 F L 97.5 F L Temperature Source Temporal Temporal Pulse Rate 96 96 Respiratory Rate 18 18 Blood Pressure 169/88 H 169/88 H Blood Pressure Mean 115 115 Pulse Ox 100 100 Oxygen Delivery Method Room Air Room Air Positive well nourished and well developed General Appearance ED: well developed Eyes PERRL and EOMs intact bilaterally Neck supple Resp normal respiratory effort and clear to auscultation bilaterally Cardio regular rate and regular rhythm Rate: other Other Details: Radial pulses are plus 2 out of 4 bilaterally are equal and symmetric GI non-tender, non-distended and no masses GI Narrative: There is mild pain on palpation in the suprapubic region but no voluntary guarding or rigidity no pulsatile mass Auscultation: normoactive bowel sounds Palpation: soft Back/Spine no CVA tenderness Extremity normal to inspection Neuro oriented x3 and CN's II-XII intact bilaterally Sensorium / Orientation: alert Motor Exam: strength 5/5 throughout Psych mental status grossly normal Skin no rashes or lesions noted MDM MDM MDM Narrative Medical decision making narrative: Patient presented to the ER afebrile. She had no CVA pain and a soft nonsurgical abdomen with mild pain with palpation to the suprapubic region. This coupled with her symptoms of frequency urgency and dysuria are most consistent with a UTI so I felt only need for urine sample at this time. Urine sample showed just rare bacteria but there is no sterile pyuria or red blood cells seen on the microscope. Therefore this time I feel patient clinically has a UTI and is most likely feeling symptoms prior to the urine showing massive change. As she is afebrile with no CVA pain I do not feel there is need for further blood work or imaging study. I will start the patient on antibiotics and the urine will be sent for culture. If she develops a fever or worsening symptoms she will return to the ER for repeat evaluation. This plan of care was discussed with the patient and she is agreeable to it at this time. Lab Data Attestation: I reviewed the patient's lab results. Labs: Laboratory Results - last 24 hr 10/19/21 23:33 Urine Color Yellow Urine Clarity Clear Urine pH 6.5 Ur Specific [place] 1.015 Urine Protein 15 H Urine Glucose (UA) Normal Urine Ketones Negative Urine Occult Blood 25 H Urine Nitrite Negative Urine Bilirubin Negative Urine Urobilinogen Normal Ur Leukocyte Esterase Negative Urine RBC 0-5 SEEN Urine WBC 0 SEEN Ur Squamous Epith Cells 0 SEEN Urine Bacteria RARE Urine Mucus RARE Discharge Plan Triage Chief Complaint: Complaint ED Provider: Ignacio Mello Dx/Rx/DC Orders Clinical Impression: UTI (urinary tract infection) Instructions: Urinary Tract Infections in Women Prescriptions: New phenazopyridine [Pyridium] 200 mg tablet 200 mg PO TID 2 Days Qty: 6 RF: 0 sulfamethoxazole-trimethoprim [Bactrim DS] 800-160 mg tablet 1 tab PO BID 5 Days Qty: 10 RF: 0 No Action amlodipine 5 MG tablet 5 mg PO DAILY RF: 0 multivitamin Tablet 1 tab PO DAILY RF: 0 cetirizine [Zyrtec] 10 mg Tablet 10 mg PO DAILY RF: 0 Primary Care Provider: [facility],Out of Referrals: [facility],Out of [Primary Care Provider] - Disposition Disposition: Home, Self Care
[2021-10-19 23:37] LABS: Squamous Epithelial Cells - UA 0 SEEN /hpf (5-10); White Blood Cells 0 SEEN /hpf (0-5)
[2021-10-19 23:38] LABS: Color, Urine Yellow (Yellow); Glucose, Dipstick Normal (Normal); Ketone-Dipstick Negative (Negative); Leukocyte Esterase-Dipstick Negative /ul (Negative); Nitrite-Dipstick Negative (Negative); Occult Blood-Urine 25 /ul (Negative); Protein-Dipstick 15 mg/dl (Negative); Specific Gravity, Urine 1.015 (1.002-1.030); Urine Bilirubin Dipstick Negative (Negative); Urine Clarity Clear (Clear); Urine Urobilinogen Normal (Normal); Urine pH 6.5 (5.0 - 8.0)
[2021-10-19 23:45] LABS: Bacteria RARE /hpf (None Seen); Mucous, Urine RARE /hpf (<or=2+); Red Blood Cells-Urine 0-5 SEEN /hpf (0-5)
[2021-10-20] MEDS: Phenazopyridine 95 MG Tablet 190 MG PO (00:09)
[2021-10-20] MEDS: Smz/Tmp Ds Tablet 1 TABLET PO (00:09)
[2021-10-20 00:11] VITALS: RESP 16
== END 2021-10-20 00:11 | disposition home or self-care (01) ==
PROVIDERS: Emergency Provider Emergency Medicine
DX: N39.0 Urinary tract infection, site not specified (principal); I10 Essential (primary) hypertension; Z85.3 Personal history of malignant neoplasm of breast; Z87.442 Personal history of urinary calculi
CPT/HCPCS: 81001; 87086; 87088; 99283

== ENCOUNTER → 2022-03-24 | Outpatient (CLI) | payer OTHER, SELFPAY ==
[2022-03-24 12:35] LABS: Anion Gap 7 (5-15); BUN 11 mg/dL (7-18); BUN/Creat Ratio 14.6 RATIO (10-20); Calcium,Total 9.5 mg/dL (8.5-10.1); Chloride 107 mmol/L (98-107); Cholesterol 198 mg/dL (200); Creatinine, Serum 0.75 mg/dL (0.55-1.02); EST Glomerular Filtration Rate 84 mL/min (>60); Est Glom Filt Rate - Afr Amer 101 mL/min (>60); Glucose 84 mg/dL (74-106); High Density Lipoprotein 59 mg/dL; Potassium 3.6 mmol/L (3.5-5.1); Sodium Level 139 mmol/L (136-145); Triglycerides 100 mg/dL; Very Low Density Lipoprotein 20 mg/dL (5-40)
== END | disposition home or self-care (01) ==
LOC: MFPLAB 10:12
PROVIDERS: PCP Family Medicine; Referring Provider Family Medicine; Visit Provider Family Medicine
DX: I10 Essential (primary) hypertension (principal)
CPT/HCPCS: 36415; 80048; 80061

== ENCOUNTER → 2022-12-08 | Outpatient (CLI) | payer OTHER, SELFPAY ==
--- NOTE | 2022-12-08 11:16 | BD_ITS ---
STUDY: DUAL ENERGY X-RAY ABSORPTIOMETRY / DXA REASON FOR EXAM: Female, 62 years old. 627.8Menopausal postmenopausalBONE DENSITY REASON FOR EXAM TECHNIQUE: Bone Mineral Density (BMD) measurements of lumbar spine and bilateral hips were obtained. COMPARISON: None. FINDINGS: Lumbar Spine (L1-L4): g/cm2 (0.909) / T-score (-1.0) / Z-score (0.4) Findings are suggestive of normal bone density with a low fracture risk. Left Femur Total: g/cm2 (0.848) / T-score (-0.8) / Z-score (0.2) Left Femoral Neck: g/cm2 (0.729) / T-score (-1.1) / Z-score (0.2) Right Femur Total: g/cm2 (0.935) / T-score (-0.1) / Z-score (0.9) Right Femoral Neck: g/cm2 (0.788) / T-score (-0.6) / Z-score (0.7) BD/Dexa Bone Density Study IMPRESSION: The patient is considered osteopenic as outlined below according to World [place] Organization (WHO) criteria with a low fracture risk. Reference Information: The T-score is the number of standard deviations above or below the standard which is normal for young adults at their peak bone mineral density. The World Health Organization (WHO) interprets the T-scores as follows: Above -1 Normal bone density Between -1 and -2.5 Osteopenia Equal to / or below -2.5 Osteoporosis As a practical clinical guideline, osteopenia may be graded as follows: Mild -1 through -1.5 Moderate -1.6 through -2.0 Severe -2.1 through -2.4 The Z-score is the number of standard deviations above or below age-matched controls. A Z-score of less than -1.5 would be considered abnormal. References: 1. NIH Osteoporosis and Related Bone Diseases www osteo.org 2. International Society for Clinical Densitometry www iscd.org 3. National Osteoporosis Foundation www nof.org Electronically Signed: Anatoly Diehl MD at 8:27 EST ,
--- NOTE | 2022-12-08 11:16 | BI_ITS ---
MAMMOGRAPHY - BILATERAL SCREENING REASON FOR EXAM: Female, 62 years old. Routine annual screening examination. PERTINENT HISTORY: Personal history of breast cancer. Prior left lumpectomy and radiation treatment. Mother with breast cancer. TECHNIQUE: Digital bilateral breast kristen (3D mammographic acquisition) in the CC and MLO projections. 2-D mediolateral oblique (MLO) and craniocaudad (CC) views of both breasts were obtained. CAD: Full Field Digital Mammography with Computer Added Detection was performed. COMPARISON: Comparison is made with prior outside examination dated 08/30/2019. FINDINGS: Breast Composition: The breasts are heterogeneously dense, which may obscure small masses. The patient is status post lumpectomy in the deep central lateral aspect of the left breast with resultant architectural distortion. Surgical clips are seen in the left axillary region. No other significant abnormalities are identified. There has been no significant change since the prior study. BI/SCRN MAMM (CAD)W/KRISTEN BILAT IMPRESSION: Stable bilateral screening mammogram. Yearly follow-up mammogram recommended. (A) ASSESSMENT CATEGORY: BIRADS Category 2: Benign. A letter regarding these results will be sent to the patient by the facility within 30 days. Approximately 10% of breast cancers are not detected by mammography. A normal mammogram should not delay biopsy of a clinically suspicious abnormality. [id number] Electronically Signed: Anatoly Diehl MD at 13:14 EST ,
== END | disposition home or self-care (01) ==
PROVIDERS: PCP Family Medicine; Referring Provider Family Medicine; Visit Provider Family Medicine
DX: Z00.00 Encounter for general adult medical examination without abnormal findings (principal); Z12.31 Encounter for screening mammogram for malignant neoplasm of breast; M85.80 Other specified disorders of bone density and structure, unspecified site; Z80.3 Family history of malignant neoplasm of breast; N95.9 Unspecified menopausal and perimenopausal disorder
CPT/HCPCS: 77063; 77067; 77080

== ENCOUNTER → 2023-05-06 | Outpatient (CLI) | payer OTHER, SELFPAY ==
[2023-05-06 11:30] LABS: Anion Gap 9 (5-15); BUN 14 mg/dL (7-18); BUN/Creat Ratio 19.4 RATIO (10-20); Calcium,Total 9.5 mg/dL (8.5-10.1); Chloride 107 mmol/L (98-107); Cholesterol 195 mg/dL (200); Creatinine, Serum 0.72 mg/dL (0.55-1.02); EST Glomerular Filtration Rate 88 mL/min (>60); Est Glom Filt Rate - Afr Amer 106 mL/min (>60); Glucose 85 mg/dL (74-106); High Density Lipoprotein 70 mg/dL; Potassium 3.6 mmol/L (3.5-5.1); Sodium Level 139 mmol/L (136-145); Triglycerides 76 mg/dL; Very Low Density Lipoprotein 15 mg/dL (5-40)
== END | disposition home or self-care (01) ==
LOC: MFPLAB 09:53
PROVIDERS: PCP Family Medicine; Visit Provider Family Medicine
DX: I10 Essential (primary) hypertension (principal)
CPT/HCPCS: 36415; 80048; 80061

== ENCOUNTER → 2023-05-27 | Outpatient (CLI) | payer OTHER, SELFPAY | END | disposition home or self-care (01) | PROVIDERS: PCP Family Medicine; Referring Provider Specialist; Visit Provider Specialist | DX: Z01.812 Encounter for preprocedural laboratory examination (principal) | CPT/HCPCS: 36415 ==

== ENCOUNTER 2023-07-05 07:40 | Emergency (ER) | payer OTHER, SELFPAY ==
[2023-07-05 07:41] VITALS: BP 173/100; PULSE 101; RESP 18; TEMP 36.6; O2SAT 100; BMI 31.3
--- NOTE | 2023-07-05 07:50 | CT_ITS ---
STUDY: CT ABDOMEN AND PELVIS WITHOUT CONTRAST REASON FOR EXAM: Female, 62 years old. Left flank pain RADIATION DOSAGE (If Supplied By Facility): CTDIvol = ( 20.73 ) mGy, DLP = ( 1039.52 ) mGycm TECHNIQUE: Transaxial images were obtained from the dome of the diaphragm to the symphysis pubis without oral contrast, and without intravenous contrast. Sagittal and coronal images were reconstructed. Individualized dose optimization techniques were used for this CT. COMPARISON: Comparison is made with prior study dated October 19, 2016. FINDINGS: Stable minimal atelectasis at the lung bases. The visualized portions of the heart are within normal limits. Multiple cysts are seen in both lobes of the liver. The largest cyst is in the right lobe and measures 7.5 cm x 6.1 cm. This has increased in size as compared to prior study. Normal gallbladder and extrahepatic biliary system. Normal spleen. Normal pancreas. Normal bilateral adrenal glands. Normal right kidney. There is a mild degree of the left-sided hydronephrosis and hydroureter due to a 2 mm calculus at the left ureterovesical junction. Left perinephric stranding. Punctate nonobstructive calculi are seen in the lower pole calyx of the left kidney. There is a moderate-sized hiatal hernia. Normal small intestine. Normal colon. The appendix is visualized and appears normal. Normal abdominal aorta. Normal inferior vena cava. There is borderline retroperitoneal lymphadenopathy with enlarged nodes no greater than 10mm in the short axis diameter. Normal urinary bladder. There is a 2.1 cm cyst in the left ovary. This has decreased in size as compared to prior study. Patient is status post hysterectomy. Normal abdominal wall. There are mild degenerative changes of the visualized lumbar spine. CT/Abdomen/Pelvis without Cont IMPRESSION: Punctate calculus at the left ureterovesical junction causing a mild degree of left hydronephrosis and left hydroureter. Left perinephric stranding. Nonobstructive calculi in the lower pole calyx of the left kidney. Moderate sized hiatal hernia. 2.1 cm left ovarian cyst. This has decreased in size as compared to prior study. Electronically Signed: Anatoly Diehl MD at 9:26 EDT ,
--- NOTE | 2023-07-05 07:51 | EX.ED.DYSGE1 ---
HPI History of Present Illness Chief Complaint: Flank Pain Detail of Chief Complaint: Abdominal pain Informant: patient Narrative Narrative: Patient presents with left lower quadrant abdominal pain that started yesterday. She has had some urinary symptoms of frequency and was seen at urgent care within the last couple weeks and treated for UTI with antibiotics. Patient had some discomfort in her left lower quadrant few weeks ago but then it resolved. She does have history of kidney stones. She has mild nausea. She rates her pain an 8 out of 10 currently. Pain radiates to her back. Denies hematuria. [facility] Medical History Hemorrhoids History of breast cancer History of kidney stones Hypertension Rectal bleed Home Medications amlodipine 5 mg tablet 5 mg PO DAILY 10/18/16 [History Last Taken 12/20/18 06:45] cetirizine 10 mg tablet (Zyrtec) 10 mg PO DAILY 10/19/21 [History Last Taken Unknown] multivitamin 1 tab PO DAILY 10/19/21 [History Last Taken Unknown] phenazopyridine 200 mg tablet (Pyridium) 200 mg PO TID 2 days #6 tabs 10/20/21 [Rx Last Taken Unknown] sulfamethoxazole 800 mg-trimethoprim 160 mg tablet (Bactrim DS) 1 tab PO BID 5 days #10 tabs 10/20/21 [Rx Last Taken Unknown] hydrocodone-acetaminophen 5-325mg 5mg-325mg 1 tab PO Q4H PRN PRN Pain 2 days #10 TABLETS 07/05/23 [Rx Last Taken Unknown] naproxen 500 mg tablet 500 mg PO BID #14 tabs 07/05/23 [Rx Last Taken Unknown] ondansetron 4 mg disintegrating tablet 4 mg PO Q8H PRN PRN Nausea #10 tabs 07/05/23 [Rx Last Taken Unknown] Allergy/AdvReac Type Severity Reaction Status Date / Time Penicillins Allergy Swelling Verified 07/05/23 07:41 tetracycline Allergy Hives Verified 07/05/23 07:41 Family History Father Colon cancer Hypertension Kidney disease Surgical History H/O: hysterectomy History of lumpectomy of left breast History of tonsillectomy Social History Smoking Status: Never smoker alcohol intake: never substance use type: does not use ROS ROS ED Review of Systems ROS Unobtainable: other Constitutional Constitutional ED: Reports lethargy; Denies chills, fever(s), sweats or weight loss Eyes Eyes: Denies blurry vision, change in vision or diplopia ENT ENT ED: Denies rhinorrhea or sore throat Cardiovascular Cardiovascular: Denies chest pain, orthopnea or racing heartbeat Respiratory/Chest Respiratory/Chest: Denies cough, dyspnea, dyspnea on exertion, orthopnea or sputum Gastrointestinal Gastrointestinal: Reports abdominal pain and nausea; Denies diarrhea or vomiting Genitourinary Genitourinary ED: Reports urinary frequency; Denies dysuria or hematuria Musculoskeletal Musculoskeletal: Denies arthralgias, back pain, myalgias or neck pain Integumentary Denies abscess, Abrasions or rash Neurologic Neurologic: Denies headache(s) or weakness Psychiatric Psychiatric: Denies anxiety, depression or suicidal thoughts Endocrine Endocrinology: Denies polydipsia, polyphagia or polyuria Hematologic/Lymphatic Hematologic/Lymphatic: Denies easy bleeding, easy bruising or lymphadenopathy Allergic/Immunologic Allergic/Immunologic ED: Denies mouth swelling, tongue swelling or urticaria EXAM Physical Exam Const Vital Signs: 07/05/23 07:41 07/05/23 10:07 Temperature 97.8 F 97.8 F Temperature Source Temporal Pulse Rate 101 H 64 Respiratory Rate 18 14 Blood Pressure 173/100 H 134/76 H Blood Pressure Mean 124 Pulse Ox 100 100 Oxygen Delivery Method Room Air Positive well nourished and well developed General Appearance ED: well developed and NAD HEENT Reports TM's clear and moist mucous membranes normocephalic and atraumatic; Negative for trauma or tenderness Tympanic Membrane ED: Yes TM's clear Eyes PERRL and EOMs intact bilaterally General Eye ED: Negative for pale conjunctiva or scleral icterus Neck no lymphadenopathy, supple and no JVD General: Negative for tenderness Chest Wall inspection of chest normal and palpation of chest normal Chest: Negative for tenderness Resp normal respiratory effort and clear to auscultation bilaterally Effort and Inspection: Negative for respiratory distress or pain with movement Auscultation: Negative for rhonchi, wheezes or diminished lung sounds Cardio regular rate, regular rhythm, S1 normal heart sound, S2 normal heart sound and no murmurs Peripheral Pulses: pulses 2+ throughout GI normal to inspection, nondistended, normoactive bowel sounds, soft to palpation, non-distended and no masses GI Narrative: Mild tenderness over left lower quadrant with some guarding. She has CVA tenderness on the left. No rebound, rigidity, or pedal signs. No mass palpated. Back/Spine no thoracic nor lumbar tenderness Back/Spine Narrative: Left CVA. Extremity normal to inspection General Extremety ED: Negative for edema General Extremity: Negative for edema Neuro oriented x3, CN's II-XII intact bilaterally, no sensory deficits noted and gait normal Sensorium / Orientation: awake, alert, oriented to person, oriented to place and oriented to time Motor Exam: strength 5/5 throughout and strength abnormal Psych mental status grossly normal Skin no rashes or lesions noted and no wounds MDM MDM MDM Narrative Medical decision making narrative: Patient presents with left flank pain and some urinary symptoms. Recently treated for UTI. History of kidney stones. Suspected likely this could be a kidney stone versus diverticulitis. Versus UTI. IV line established. Patient was medicated with morphine, Toradol, and Zofran. She had good pain relief with that. CBC with differential showed a white count of 10.9 with hemoglobin of 13 and platelet count of 284. Chemistries unremarkable. Urinalysis unremarkable. CT scan of the abdomen pelvis without contrast showed a punctate left ureteral stone at the UVJ with left hydronephrosis and left hydroureter. Patient was given urine strainers. She will be given a prescription for Naprosyn and Jackson as well as Zofran. She will be referred to urology for follow-up. She is advised to return if increasing pain, fever, vomiting, or condition should worsen anyway. Lab Data Labs: Laboratory Results - last 24 hr 07/05/23 07/05/23 07:55 08:15 WBC 10.9 RBC 4.95 Hgb 13.5 Hct 42.4 MCV 85.7 MCH 27.3 MCHC 31.8 L RDW Std Deviation 45.7 H RDW Coeff of Elio 14.6 Plt Count 284 MPV 9.8 Immature Gran % (Auto) 0.400 Neut % (Auto) 77.6 H Lymph % (Auto) 15.3 L Davis % (Auto) 6.0 Eos % (Auto) 0.5 Baso % (Auto) 0.2 Absolute Neuts (auto) 8.5 H Absolute Lymphs (auto) 1.67 Nucleated RBC % 0 Sodium 141 Potassium 3.6 Chloride 108 H Carbon Dioxide 26.0 Anion Gap 7 BUN 19 H Creatinine 1.16 H Estim Creat Clear Calc 50.15 Est GFR (MDRD) Af Amer 61 Est GFR (MDRD) Non-Af 51 L BUN/Creatinine Ratio 16.4 Glucose 108 H Calcium 9.3 Urine Color Yellow Urine Clarity Sl. Cloudy Urine pH 6.0 Ur Specific [place] 1.020 Urine Protein 30 H Urine Glucose (UA) Normal Urine Ketones 15 H Urine Occult Blood 25 H Urine Nitrite Negative Urine Bilirubin Negative Urine Urobilinogen Normal Ur Leukocyte Esterase 25 H Urine RBC 0-5 SEEN Urine WBC 0-5 SEEN Ur Squamous Epith Cells 5-10 SEEN Urine Bacteria RARE Urine Mucus 1+ Radiography Diagnostic Testing: Clinical Impression(s) from Imaging Studies Abdomen/Pelvis CT 07/05/23 07:50 IMPRESSION: Punctate calculus at the left ureterovesical junction causing a mild degree of left hydronephrosis and left hydroureter. Left perinephric stranding. Nonobstructive calculi in the lower pole calyx of the left kidney. Moderate sized hiatal hernia. 2.1 cm left ovarian cyst. This has decreased in size as compared to prior study. Electronically Signed: Anatoly Diehl MD at 9:26 EDT , Discharge Plan Triage Chief Complaint: Flank Pain ED Provider: Martin Chinchilla Dx/Rx/DC Orders Clinical Impression: Urolithiasis Instructions: ED Kidney Stone w/ Colic Prescriptions: New hydrocodone-acetaminophen [hydrocodone-acetaminophen] 5-325 mg tablet 1 tab PO Q4H PRN PRN (Reason: Pain) 2 Days Qty: 10 0RF ondansetron [ondansetron] 4 mg tablet,disintegrating 4 mg PO Q8H PRN PRN (Reason: Nausea) Qty: 10 0RF naproxen 500 mg tablet 500 mg PO BID Qty: 14 0RF No Action amlodipine 5 MG tablet 5 mg PO DAILY Patient Comments: TAKE ONE TABLET BY MOUTH AT BEDTIME, BP multivitamin Tablet 1 tab PO DAILY cetirizine [Zyrtec] 10 mg Tablet 10 mg PO DAILY phenazopyridine [Pyridium] 200 mg tablet 200 mg PO TID 2 Days Qty: 6 0RF sulfamethoxazole-trimethoprim [Bactrim DS] 800-160 mg tablet 1 tab PO BID 5 Days Qty: 10 0RF Primary Care Provider: Sloane Abernathy Referrals: Sloane Abernathy MD [Primary Care Provider] - Tamera Vela MD [Med Staff - Active Staff] - 3-5 Days Disposition Disposition: Home, Self Care Discharge Date/Time: 07/05/23 10:21
[2023-07-05 08:06] LABS: Color, Urine Yellow (Yellow); Glucose, Dipstick Normal (Normal); Ketone-Dipstick 15 mg/dl (Negative); Leukocyte Esterase-Dipstick 25 /ul (Negative); Nitrite-Dipstick Negative (Negative); Occult Blood-Urine 25 /ul (Negative); Protein-Dipstick 30 mg/dl (Negative); Urine Bilirubin Dipstick Negative (Negative); Urine Clarity Sl. Cloudy (Clear); Urine Urobilinogen Normal (Normal)
[2023-07-05] MEDS: Ondansetron 4 MG/2 ML Vial IV (08:11)
[2023-07-05] MEDS: Morphine 4 MG/ML Syringe IV (08:11)
[2023-07-05] MEDS: 0.9% Normal Saline 1,000 ML 150 ML IV (08:12)
[2023-07-05] MEDS: Ketorolac 15 MG/ML Vial IV (08:13)
[2023-07-05 08:22] LABS: Absolute Lymphocyte Count 1.67 X10^3/uL (0.83-4.51); Absolute Neutrophil Count 8.5 X10^3/uL (2.0-7.7); Basophil# 0.02 X10^3/uL; Basophil% 0.2 % (0-1); Eosinophil# 0.05 X10^3/uL; Eosinophils% 0.5 % (0-5); Hematocrit 42.4 % (37-47); Hemoglobin 13.5 g/dL (12.0-15.0); Lymphocyte # 1.67 X10^3/ul (0.83-4.51); Lymphocyte % 15.3 % (19-41); Mean Corp Hgb Conc 31.8 g/dL (32-36); Mean Corpuscular Hgb 27.3 pg (27.0-32.0); Mean Corpuscular Volume 85.7 fL (81-99); Mean Platelet Vol. 9.8 fl (6.2-12.0); Monocyte# 0.65 X10^3/uL; NRBC Flagged by Analyzer 0 % (0-5); Neutrophil # 8.47 X10^3/uL (2.7-7.7); Neutrophil % 77.6 % (47-70); Platelet Count 284 K/mm3 (150-450); RBC Distribution Width CV 14.6 % (11.6-14.6); RBC Distribution Width SD 45.7 fl (35.1-43.9); Red Blood Count 4.95 M/mm3 (4.2-5.4); White Blood Count 10.9 K/mm3 (4.4-11.0)
[2023-07-05 08:25] LABS: Red Blood Cells-Urine 0-5 SEEN /hpf (0-5); White Blood Cells 0-5 SEEN /hpf (0-5)
[2023-07-05 08:26] LABS: Bacteria RARE /hpf (None Seen); Mucous, Urine 1+ /hpf (<or=2+); Squamous Epithelial Cells - UA 5-10 SEEN /hpf (5-10)
[2023-07-05 08:36] LABS: Anion Gap 7 (5-15); BUN 19 mg/dL (7-18); BUN/Creat Ratio 16.4 RATIO (10-20); Calcium,Total 9.3 mg/dL (8.5-10.1); Chloride 108 mmol/L (98-107); Creatinine, Serum 1.16 mg/dL (0.55-1.02); EST Glomerular Filtration Rate 51 mL/min (>60); Est Glom Filt Rate - Afr Amer 61 mL/min (>60); Estimated Creatinine Clearance 50.15 ml/min; Glucose 108 mg/dL (74-106); Potassium 3.6 mmol/L (3.5-5.1); Sodium Level 141 mmol/L (136-145)
[2023-07-05 10:07] VITALS: BP 134/76; PULSE 64; RESP 14; TEMP 36.6; O2SAT 100
== END 2023-07-05 10:21 | disposition home or self-care (01) ==
PROVIDERS: Emergency Provider Emergency Medicine; PCP Family Medicine; Visit Provider Emergency Medicine
DX: N13.2 Hydronephrosis with renal and ureteral calculous obstruction (principal); I10 Essential (primary) hypertension; N13.4 Hydroureter; R35.0 Frequency of micturition
CPT/HCPCS: 74176; 80048; 81001; 85025; 96361; 96374; 96375; 99283; J7030; A4216; J2405

== ENCOUNTER → 2024-02-17 | Outpatient (CLI) | payer OTHER, SELFPAY ==
[2024-02-17 12:24] LABS: Cholesterol 193 mg/dL (200); High Density Lipoprotein 64 mg/dL; Protein, Urine (Random) 18.2 mg/dL (<11.9); Protein:Creat Ratio 133 mg/g CRE (0-200); Triglycerides 80 mg/dL; Very Low Density Lipoprotein 16 mg/dL (5-40)
== END | disposition home or self-care (01) ==
LOC: MFPLAB 10:10
PROVIDERS: PCP Family Medicine; Visit Provider Family Medicine
DX: I10 Essential (primary) hypertension (principal)
CPT/HCPCS: 36415; 80061; 82570; 84156

== ENCOUNTER → 2024-12-21 | Outpatient (CLI) | payer OTHER, SELFPAY ==
--- NOTE | 2024-12-21 08:19 | BI_ITS ---
MAMMOGRAPHY - BILATERAL SCREENING REASON FOR EXAM: Female, 64 years old. Routine annual screening examination. PERTINENT HISTORY: Personal history of breast cancer. Prior left lumpectomy. Mother with breast cancer. TECHNIQUE: Digital bilateral breast kristen (3D mammographic acquisition) in the CC and MLO projections. 2-D mediolateral oblique (MLO) and craniocaudad (CC) views of both breasts were obtained. CAD: Full Field Digital Mammography with Computer Added Detection was performed. COMPARISON: Comparison is made with prior study dated December 08, 2022. FINDINGS: Breast Composition: The breasts are heterogeneously dense, which may obscure small masses. There are no dominant masses or suspicious calcifications. Once again, the patient is status post lumpectomy in the deep central lateral aspect of the left breast with resultant architectural distortion and decreased size of the left breast. Surgical clips are also seen in the axillary region of the left breast. Stable fat-containing right axillary lymph node. No other significant abnormalities are identified. There has been no significant change since the prior study. BI/SCRN MAMM (CAD)W/KRISTEN BILAT IMPRESSION: Stable bilateral screening mammogram. Yearly follow-up mammogram recommended. (A) ASSESSMENT CATEGORY: BIRADS Category 2: Benign. A letter regarding these results will be sent to the patient by the facility within 30 days. Approximately 10% of breast cancers are not detected by mammography. A normal mammogram should not delay biopsy of a clinically suspicious abnormality. [id number] Electronically Signed: Anatoly Diehl MD at 9:28 EST ,
== END | disposition home or self-care (01) ==
LOC: OPBI 08:19
PROVIDERS: PCP Family Medicine; Referring Provider Family Medicine; Visit Provider Family Medicine
DX: Z12.31 Encounter for screening mammogram for malignant neoplasm of breast (principal); Z85.3 Personal history of malignant neoplasm of breast; Z80.3 Family history of malignant neoplasm of breast
CPT/HCPCS: 77063; 77067

== ENCOUNTER → 2025-10-01 | Outpatient (CLI) | payer OTHER, SELFPAY ==
--- NOTE | 2025-10-01 12:45 | CT_ITS ---
PROCEDURE: ABDOMEN/PELVIS WITHOUT CONT 10/01/2025 REASON FOR EXAM: KIDNEY STONES TECHNIQUE: Procedure Code: CTABDPEL Modality: CT Procedure: ABDOMEN/PELVIS WITHOUT CONT Noncontrast technique limits evaluation of the abdominal and pelvic viscera. Coronal and Sagittal reconstruction series were provided. One or more dose reduction techniques were used (e.g., Automated exposure control, adjustment of the mA and/or kV according to patient size, use of iterative reconstruction technique). RADIATION DOSE SUMMARY: CTDlvol: 19 mGy DLP: 1055 mGycm COMPARISON: July 05, 2023 FINDINGS: Lung bases: Clear Liver: Multiple bilobar liver cysts are benign. Largest left lobe is 5.6 x 4.2 cm in the largest in the right lobe is 7.0 x 8.9 cm. Gallbladder: Normal Spleen: Normal Pancreas: Normal Adrenals: Normal Kidneys: Mild right hydronephrosis related to a calculus at the ureteropelvic junction measuring 5.0 x 3.6 x 4.8 mm. Punctate calculus right midpole and lower pole. At least 3 punctate calculi at the left lower pole. Bladder: 4 mm calculus in the dependent portion of the bladder. Nearly empty. Reproductive Organs: Hysterectomy. No adnexal mass. Bowel: Moderate hiatus hernia. Small bowel is not dilated. Colon appears normal. Appendix: Normal Lymph nodes: None appear enlarged. Vasculature: Mild atherosclerotic plaque without aneurysm. Peritoneum / Retroperitoneum: No free air, free fluid or mass. Abdominal wall: Tiny umbilical hernia containing properitoneal fat. Bones: Disc space narrowing lumbosacral junction. Lower lumbar facet hypertrophy.. CT/Abdomen/Pelvis without Cont IMPRESSION: 1. Moderate hiatus hernia 2. Benign liver cysts. No follow-up required. 3. Bilateral renal calculi. Mild right hydronephrosis related to a UPJ calcul us measuring up to 5 mm. 4. Calculus in the urinary bladder likely a passed calculus. 5. Hysterectomy Reading Location: [id number]
== END | disposition home or self-care (01) ==
PROVIDERS: PCP Family Medicine; Referring Provider Urology; Visit Provider Urology
DX: N20.0 Calculus of kidney (principal); R10.A0 Flank pain, unspecified side
CPT/HCPCS: 74176

== ENCOUNTER 2025-10-31 09:24 | Day surgery (SDC) | payer OTHER, SELFPAY ==
--- NOTE | 2025-10-15 16:57 | PAT.ANESEVAL ---
Pre-Assessment Diagnosis/Proposed Procedure Planned Operative Procedure(s): CYSTOSCOPY, RIGHT URETEROSCOPY LASER LITHOTRIPSY, STONE BASKET EXTRACTION, STENT INSERTION Anesthesia History Anesthesia History - polisher and buffer: Anesthesia History - polisher and buffer Hx Hospitalization No 10/15/25 13:10 Any Problems With Anesthesia No 10/15/25 13:10 Cholinesterase deficiency No 10/15/25 13:10 You/Your Family Experience No 10/15/25 13:10 fever (hyperthermia) with Relationship Recent Exposure to Contagious No 12/20/18 08:36 Disease Does patient have nerve No 10/15/25 13:10 stimulator Patient instructed to have device shut off --Does patient have Pacemaker or ICD? When Was Last Pacemaker Check QUESTION #4 FULL TEXT: You/Your Family Experience fever (hyperthermia) with Anesthesia Last Oral Intake Last Oral intake: Last Oral Intake NPO since Meds taken in AM with sips of water? Meds patient instructed to take am of surgery PONV PONV - polisher and buffer: PONV - polisher and buffer Female Yes 10/15/25 13:10 HX of Motion Sickness Yes 10/15/25 13:10 HX of N/V After Surgery No 10/15/25 13:10 Non-Smoker Yes 10/15/25 13:10 Duration of Surgery greater Yes 10/15/25 13:10 than 60 minutes Number of Risk Factors 4 10/15/25 13:10 PONV Score Severe Risk 10/15/25 13:10 Height & Weight Height & Weight: Anesthesia: Height & Weight Height 5 ft 7 in 10/14/25 13:51 Respiratory Assessment Respiratory Assessment - polisher and buffer: Respiratory Tract Infection Hx - polisher and buffer Hx Respiratory Tract Infection No 10/15/25 13:10 STOP Sleep Apnea STOP Sleep Apnea - polisher and buffer: STOP Sleep Apnea - polisher and buffer Hx Hypertension Yes: CONTROLLED WITH MEDS 10/15/25 13:10 Hx Sleep Apnea No 10/15/25 13:10 CPAP BIPAP Do you snore loudly (louder No 10/15/25 13:10 than talking or can be heard Do you often feel tired/ No 10/15/25 13:10 fatigued/ sleepy during daytime? Has anyone observed you stop No 10/15/25 13:10 breathing during sleep? STOP Results Negative 10/15/25 13:10 QUESTION #5 FULL TEXT : Do you snore loudly (louder than talking or can be heard through closed doors)? 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 Specify any problems Hx of Preganancy in last 3 No 10/15/25 13:10 Months Nurse Filling Out Transfusion [id number] 10/15/25 13:10 & Questions: Date: 10/15/25 10/15/25 13:10 Time: 13:14 10/15/25 13:10 Patient unable to answer at this time (ie. confused, unrespo /Reproduction History /Reproductive History - polisher and buffer: /Reproductive Hx- polisher and buffer Hx Now Gestational Age (in weeks): EDC: Hx Hx Para Hx Section SAB Does the father of the baby or his family experience fever w Father of the baby Malignant Hypertension history comment [facility] Medical History (Updated 10/15/25 @ 13:19 by Derrick Daniels) Wears contact lenses Wears glasses Migraine headache TIA (transient ischemic attack) Gastric reflux History of edema History of kidney stones Rectal bleed Hemorrhoids Hypertension History of breast cancer Home Medications ?Medication ?Instructions ?Recorded ?Last Taken ?Type amlodipine 5 mg tablet 5 mg PO QHS 10/18/16 12/20/18 06:45 History cetirizine 10 mg tablet (Zyrtec) 10 mg PO DAILY 10/19/21 Unknown History multivitamin 1 tab PO DAILY 10/19/21 Unknown History pantoprazole 20 mg tablet,delayed 20 mg PO QDAY PRN GERD 09/17/25 Unknown History release Lactobacillus 1 cap PO QDAY 10/14/25 Unknown History acidophilus-Bifidobac.animalis 10 billion cell capsule (Digestive Probiotic) aspirin 81 mg tablet 81 mg PO QDAY 10/14/25 Unknown History calcium carbonate (Calcium 500) 500 mg PO QDAY 10/14/25 Unknown History Allergy/AdvReac Type Severity Reaction Status Date / Time tetracycline Allergy Hives Verified 10/15/25 13:07 Family History Father Colon cancer Hypertension Kidney disease Surgical History History of bilateral knee replacement History of lumpectomy of left breast H/O: hysterectomy History of tonsillectomy Social History Smoking Status: Never smoker alcohol intake: never substance use type: does not use Audit: Pertinent Findings Pertinent Findings EKG Perinent findings: EKG 07/18/2023. Sinus rhythm. Recommendation Anesthesia Recommendation Anesthesia recommendation: OPTIMIZED for anesthesia
[2025-10-31] VITALS (10 sets, daily range): BP systolic 129–168; BP diastolic 77–88; PULSE 67–105; RESP 16–18; TEMP 36.3–36.7; O2SAT 93–100; BMI 34.2
--- NOTE | 2025-10-31 09:25 | PCM.HP.BLA ---
History and Physical Date of Admission: 10/31/25 Date of Service: 10/14/25 MR#: [id number] Acct: [id number] Name: ALLY PASTOR Rep #: [id number] : 1960 Provider: Dr. Tamera Vela MD Age/Sex: 64/F Location: [facility] [place] [facility] [place] Status: Signed Intake Vital Signs 09/17/2512:18 10/14/2513:51 Height 5 ft 7 in 5 ft 7 in Weight: 200 lb 200 lb BMI 31.3 31.3 BP 145/92 H 138/88 H Pulse 96 88 Temp 98 F Intake Visit Reasons: PRE-OP Chief Complaint: preoperative history and physical Director Counseling Bureau Required: No Is patient in pain?: No Allergies tetracycline Allergy (Verified 09/17/25 12:21) Hives Have you fallen in the past year?: No PFSH Medical History History of kidney stones Rectal bleed Hemorrhoids Hypertension History of breast cancer Surgical History History of lumpectomy of left breast H/O: hysterectomy History of tonsillectomy Family History Father Colon cancer Hypertension Kidney disease Social History Smoking Status: Never smoker alcohol intake: never substance use type: does not use HPI HPI Urology Chief Complaint: preoperative history and physical Details: ALLY PASTOR, is a 64 F. The patient is here for preoperative history and physical prior to cystoscopy with right ureteroscopy, laser lithotripsy, stone basket extraction and right ureteral stent insertion. We reviewed the images together today. She has a proximal right ureteral stone about 4mm and also a distal vesicoureteral junction stone that she thinks may have passed as bladder symptoms have improved. There are no new symptoms since the last visit. The procedure, recovery and expectations were explained. The risks, benefits and alternatives were discussed, including but not limited to, the risks of anesthesia, bleeding, infection, injury, pain and the need for further intervention. We have discussed the risk of exposure to and/or potential harm posed by the COVID-19 virus with having a surgery/procedure at this time. A joint decision was made at this time to proceed with the scheduled surgery/procedure as indicated on the consent form. ROS Const Constitutional: No chills, fatigue, fever(s), headache(s), night sweats, weakness, weight change, abnormal sleep pattern or change in appetite Eyes Eyes: No change in vision ENT ENT: No headache(s) or dry mouth Resp Respiratory: No cough, chest congestion, shortness of breath or wheezing Cardio Cardiology: Positive for other (No chest pain.); No shortness of breath, irregular heart rhythm or lightheadedness Gastro GI: Positive for abdominal pain and other (No nausea.); No change in bowel habits, constipation, diarrhea or vomiting Musc Musculoskeletal: Positive for back pain; No abnormal gait Skin Skin: No yellowing of the eye, lesions, itchy eyes, rash or skin ulcer Neuro Neurology: No abnormal gait, confusion, dizziness, weakness, headache(s) or memory loss Psych Psychiatric: No abnormal sleep pattern, No change in appetite, No confusion and No memory loss Endo Endocrine: No fatigue, increased thirst/drinking or weight change Aller/Imm Allergy/Immunologic: No itchy eyes or wheezing Casey/Lymp Hematologic/Lymphatic: No easy bleeding, easy bruising or enlarged lymph nodes Exam Const General: cooperative, healthy appearing, comfortable and no acute distress [facility] Head: normocephalic and atraumatic Ears: hearing grossly normal bilaterally and external ears normal Nose: external nose normal Eyes General: appearance normal, both eyes and all related structures Neck Neck: normal visual inspection and trachea midline Chest Chest palpation & inspection: normal inspection of the chest Resp Effort & Inspection: normal respiratory effort, able to speak in complete sentences and symmetric chest movement Cardio Rate: regular rate GI Inspection: normal to inspection Palpation: soft and nontender General: No CVA tenderness Skin General: no rashes or lesions noted Neuro General: patient alert, patient awake, patient oriented x3 and CN's II-XI intact bilaterally Extrem General: normal to inspection Psych Appearance: grossly normal and well kempt Mental Status: mental status grossly normal Results POC UA Auto w/o Microscopy Office Urine Color YELLOW Last Edit by Nena Springer on 10/14/25 14:08 Office Urine Clarity ? Last Edit by Nena Springer on 10/14/25 14:08 Office Urine Glucose Negative Last Edit by Nena Springer on 10/14/25 14:08 Office Urine Ketones Negative Last Edit by Nena Springer on 10/14/25 14:08 Office Urine Bilirubin Negative Last Edit by Nena Springer on 10/14/25 14:08 Office Urine Urobilinogen 0.2 mg/dL Last Edit by Nena Springer on 10/14/25 14:08 Off Ur Spec [place] 1.015 Last Edit by Nena Springer on 10/14/25 14:08 Office Urine pH 7 Last Edit by Nena Springer on 10/14/25 14:08 Office Urine Protein Negative Last Edit by Nena Springer on 10/14/25 14:08 Office Urine Blood Negative Last Edit by Nena Springer on 10/14/25 14:08 Office Urine Blood Hemolyzed ? Last Edit by Nena Springer on 10/14/25 14:08 Office Urine Nitrate Negative Last Edit by Nena Springer on 10/14/25 14:08 Off Ur Leukocytes Negatve Last Edit by Nena Springer on 10/14/25 14:08 Coding Level of Care Code Off vis,est,level 4 Diagnoses Calculus of kidney and ureter N20.2 Flank pain R10.A0 Additional Codes Intake - Is patient in pain?: No (1126F) Assessment and Plan Assessment and Plan (1) Calculus of kidney and ureter: Status: Acute (2) Flank pain: Status: Acute Orders: Orders POC UA Auto w/o Microscopy Today N39.0 - Urinary tract infection, site not specified Medications: Discontinued hydrocodone-acetaminophen 5-325 mg Discontinued Reason: Pt no longer taking 1 TAB PO Q4H PRN 2 days PRN 10 TABLETS 0RF Pain N20.9 - Urinary calculus, unspecified Plan urine culture is negative proceed with intervention as scheduled Clinical Quality Measures Falls Risk Screening/Assistive Devices Have you fallen in the past year?: No 10/14/25 2159 <Electronically signed by Tamera Vela MD> Date Tamera Vela MD
--- NOTE | 2025-10-31 09:25 | EX.PCM.DISCH ---
Discharge Instructions Diet Discharge Diet: No restrictions Activity Discharge Activity: Return to Normal Activity May resume sexual activity in: No Restrictions Dressing / Incision Call your doctor if you observe: Fever of 101 or Higher, Inability to urinate and Inability to have a bowel movement Follow Up Care Please Follow Up With: Tamera Vela MD Test Results: Test results from this visit will be discussed in further detail at your follow-up appointment, if applicable. Discharge Plan Admission Attending Provider: Tamera Vela Primary Care Provider: Sloane Abernathy Instructions Print Language: Libyan Discharge Orders/Prescriptions Prescriptions: New oxycodone-acetaminophen 5-325 mg tablet 1 tab PO Q8H PRN (Reason: pain) 3 Days Qty: 10 0RF cephalexin 500 mg capsule 500 mg PO Q12 3 Days Qty: 6 0RF ondansetron 4 mg tablet,disintegrating 4 mg PO Q8H PRN (Reason: nausea and vomiting) Qty: 10 0RF phenazopyridine 200 mg tablet 200 mg PO TID PRN (Reason: pain) Qty: 30 3RF Continued pantoprazole 20 mg tablet,delayed release (DR/EC) 20 mg PO QDAY PRN (Reason: GERD) calcium carbonate [Calcium 500] 500 mg calcium (1,250 mg) tablet,chewable 500 mg PO QDAY aspirin 81 mg tablet 81 mg PO QDAY Digestive Probiotic 10 billion cell capsule 1 cap PO QDAY amlodipine 5 MG tablet 5 mg PO QHS Patient Comments: TAKE ONE TABLET BY MOUTH AT BEDTIME, BP multivitamin Tablet 1 tab PO DAILY cetirizine [Zyrtec] 10 mg Tablet 10 mg PO DAILY Referrals / Follow Up: Sloane Abrenathy MD [Primary Care Provider, Family Practice] Disposition Disposition (needs filled in before D/C Order can be placed): Home, Self Care
--- NOTE | 2025-10-31 09:26 | OP.PCM_ITS ---
Problems Associated Problem List Diagnoses (1) Kidney stones: Multi Select Codes Urology Urology Charge Forwarding-multi code: 10106 Cysto w/ insert Ureteral Stent and Attention Christy (51503 for ureteroscopy with laser lithotripsy and basket extraction) Operative Report (Standard) Operative Information Date of Procedure: 10/31/25 Pre-Operative Diagnosis: Right ureteral and renal stones Post-Operative Diagnosis: Same Surgery/Procedure Performed: Cystoscopy, right ureteroscopy, thulium laser lithotripsy, stone basket extraction, right ureteral stent insertion museum preparator: No Type of Anesthesia: General RN Documented Start/Stop Times: Operation Date: 10/31/25 11:00 Case Time Into Pre-Op 10/31/25 09:53 Anesthesia Start 10/31/25 11:32 Into Room 10/31/25 11:32 Procedure Start 10/31/25 11:45 Procedure End 10/31/25 12:17 Anesthesia End 10/31/25 12:22 Out of Room 10/31/25 12:22 Into Recovery 10/31/25 12:25 Procedure Start Time: 11:45 Procedure Stop Time: 12:17 Select all DRAINS/GRAFTS/IMPLANTS that apply: Drains Drain details: 6 Panamanian by 28 cm JJ stent Estimated Blood Loss: <5cc Specimen collected: Yes Description of specimen(s) removed: Right ureteral calculus Description of surgery: The patient is a 64-year-old female with right ureteral stone and kidney stones. She presents for surgical intervention. Informed consent was obtained. The patient was taken in the operating room placed on the operating room table in a supine position. She was apparently padded and secured to the table. Anesthesia monitored the head, neck, airway, IV access and vital signs throughout the case. Once anesthesia was appropriately administered she was placed into dorsolithotomy position and was prepped and draped in usual sterile fashion. The cystoscope was then inserted through the urethra under direct visualization into the urinary bladder. Cystoscopic evaluation of the bladder mucosa revealed no evidence of mass, erythema, ulceration or foreign body. The right ureteral orifice was identified in the correct anatomic position. It was gently intubated with a 0.035 Glidewire which passed easily into the renal pelvis is seen on fluoroscopy. Using a semirigid ureteroscope, access was obtained to the right ureter and in the mid aspect of the ureter a 5 mm stone was identified. It was broken into small pieces using the thulium 200 ?m laser fiber. These pieces were removed with a stone basket and sent for analysis. A second 0.035 Glidewire was then passed alongside the first and a flexible ureteroscope was placed over the wire and gently advanced into the renal pelvis. Each calyx was directly visualized. There were several calcifications identified behind the papilla but none were available for removal and all were approximately 1 to 2 mm in size. At this time the ureteroscope was used to directly visualize the entire length of the ureter and no evidence of injury or defect was identified. The remaining Glidewire was then utilized with the cystoscope to place a 6 Panamanian 28 cm JJ stent over the wire with good positioning in the renal pelvis as well as the urinary bladder. Her bladder was then emptied and the cystoscope was removed. There were no complications during this procedure. Surgical Findings: Right ureteral calculus, punctate right renal stones Complications Complications: No Admit VTE Documentation VTE Present on Admission: Yes VTE Mechan Device Prophylaxis: SCD's VTE Pharm Prophylaxis ordered?: No Reason prophylaxis not ordered: Treatment Not Indicated
--- NOTE | 2025-10-31 09:49 | EKG12_ITS ---
Test Reason : PREOP Blood Pressure : */* mmHG Vent. Rate : 99 BPM Atrial Rate : 99 BPM P-R Int : 174 ms QRS Dur : 86 ms QT Int : 358 ms P-R-T Axes : 7 -11 -9 degrees QTcB Int : 459 ms Normal sinus rhythm Normal ECG No previous ECGs available Confirmed by TARAS MCALLISTER, NEETU ([id number]), copy editor JAZMINE LOPEZ ([id number]) on 11/01/2025 11:36:41 AM Referred By: Tamera Vela Confirmed By: NEETU GRAJEDA MD
[2025-10-31] MEDS: Lactated Ringers 1,000 ML 15 ML IV ×2 (09:59→12:38)
[2025-10-31 10:13] LABS: Hematocrit 42.5 % (37-47); Hemoglobin 14.1 g/dL (12.0-15.0); Immature Granulocytes Count 0.010 X10^3/uL (0.0-0.0); Mean Corp Hgb Conc 33.2 g/dL (32-36); Mean Corpuscular Volume 83.8 fL (81-99); Mean Platelet Vol. 9.3 fl (6.2-12.0); NRBC Flagged by Analyzer 0 % (0-5); Platelet Count 251 K/mm3 (150-450); RBC Distribution Width CV 14.6 % (11.6-14.6); RBC Distribution Width SD 44.4 fl (35.1-43.9); Red Blood Count 5.07 M/mm3 (4.2-5.4); White Blood Count 5.2 K/mm3 (4.4-11.0)
--- NOTE | 2025-10-31 10:28 | PRE.ANES_ITS ---
ASA Classification* ASA Classification ASA Classification: 2 Assessment & Plan Anesthesia* Anesthesia Assessment Anesthesia Assessment: Discussed sedation and/or anesthesia options, risks, benefits, and alternatives with patient/parents/legal guardian/POA. Questions invited. The patient/parents/legal guardian/POA seems to understand and agrees to proceed with anesthesia plan. Reviewed the physical assessment, medical history, allergy history and patient home medications list prior to surgery/procedure/anesthetic and documented any changes. Performed airway and anesthesia risk assessments. Anesthesia Type Anesthesia Type: General History Source History Obtained from:: Patient and Chart Anesthesia Focused Assessment* Temperature: 98.1 F Pulse Rate: 105 Blood Pressure: 168/86 Respiratory Rate: 16 Pulse Ox: 100 Oxygen Delivery Method: Room Air Airway Assessment Mouth opens: >3 cm Mallampati Score: I Teeth Condition: Caps/Crowns (Patient has several crowns. They are all tight.) Neck Range of motion (ROM): Limited ROM (Somewhat Decreased) Labs Anesthesia Preop lab: CBC WBC, (4.4-11.0) 5.2 K/mm3 Today, 10:03 RBC, (4.2-5.4) 5.07 M/mm3 Today, 10:03 Hgb, (12.0-15.0) 14.1 g/dL Today, 10:03 Hct, (37-47) 42.5 % Today, 10:03 Plt Count, (150-450) 251 K/mm3 Today, 10:03 CHEMISTRY Potassium, (3.5-5.1) 3.6 mmol/L 07/05/23, 08:15 Sodium, (136-145) 141 mmol/L 07/05/23, 08:15 BUN, (7-18) 19 mg/dL H 07/05/23, 08:15 Creatinine, (0.55-1.02) 1.16 mg/dL H 07/05/23, 08:15 Glucose, (74-106) 108 mg/dL H 07/05/23, 08:15 COAG Pre-Assessment Diagnosis/Proposed Procedure Planned Operative Procedure(s): CYSTOSCOPY, RIGHT URETEROSCOPY LASER LITHOTRIPSY, STONE BASKET EXTRACTION, STENT INSERTION Anesthesia History 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 When Was Last Pacemaker Check QUESTION #4 FULL TEXT: You/Your Family Experience fever (hyperthermia) with Anesthesia Last Oral Intake Last Oral intake: Last Oral Intake NPO since 08:00 10/31/25 09:54 Meds taken in AM with sips of Yes 10/31/25 09:54 water? Meds patient instructed to take am of surgery Any additional information?: Yes Meds taken in AM with sips of water?: Yes PONV PONV - research methods instructor: PONV - research methods instructor Female Yes 10/15/25 13:10 HX of Motion Sickness Yes 10/15/25 13:10 HX of N/V After Surgery No 10/15/25 13:10 Non-Smoker Yes 10/15/25 13:10 Duration of Surgery greater Yes 10/15/25 13:10 than 60 minutes Number of Risk Factors 4 10/15/25 13:10 PONV Score Severe Risk 10/15/25 13:10 Height & Weight Height & Weight: Anesthesia: Height & Weight Height 5 ft 7 in 10/31/25 09:54 Weight: 99.1 kg 10/31/25 09:54 Body Mass Index (BMI) 34.2 10/31/25 09:54 Respiratory Assessment Respiratory Assessment - research methods instructor: Respiratory Tract Infection Hx - research methods instructor Hx Respiratory Tract Infection No 10/15/25 13:10 STOP Sleep Apnea STOP Sleep Apnea - research methods instructor: STOP Sleep Apnea - research methods instructor Hx Hypertension Yes: CONTROLLED WITH MEDS 10/15/25 13:10 Hx Sleep Apnea No 10/15/25 13:10 CPAP BIPAP Do you snore loudly (louder No 10/15/25 13:10 than talking or can be heard Do you often feel tired/ No 10/15/25 13:10 fatigued/ sleepy during daytime? Has anyone observed you stop No 10/15/25 13:10 breathing during sleep? STOP Results Negative 10/15/25 13:10 QUESTION #5 FULL TEXT : Do you snore loudly (louder than talking or can be heard through closed doors)? 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 Specify any problems Hx of Preganancy in last 3 No 10/15/25 13:10 Months Nurse Filling Out Transfusion [id number] 10/15/25 13:10 & Questions: Date: 10/15/25 10/15/25 13:10 Time: 13:14 10/15/25 13:10 Patient unable to answer at this time (ie. confused, unrespo /Reproduction History /Reproductive History - research methods instructor: /Reproductive Hx- research methods instructor Hx Now Gestational Age (in weeks): EDC: Hx Hx Para Hx Section SAB Does the father of the baby or his family experience fever w Father of the baby Malignant Hypertension history comment Active Medications Active Medications: Current Medications Generic Name Dose Route Start Last Admin Trade Name Freq PRN Reason Stop Dose Admin Lactated Ringer's 1,000 mls @ 15 mls/hr 10/31/25 10:00 10/31/25 09:59 IV 15 mls/hr .Q48H EDDIE Administration PFSH Medical History Wears contact lenses Wears glasses Migraine headache TIA (transient ischemic attack) Gastric reflux History of edema History of kidney stones Rectal bleed Hemorrhoids Hypertension History of breast cancer Home Medications ?Medication ?Instructions ?Recorded ?Last Taken ?Type amlodipine 5 mg tablet 5 mg PO QHS 10/18/16 5 History cetirizine 10 mg tablet (Zyrtec) 10 mg PO DAILY Unknown History multivitamin 1 tab PO DAILY 10/19/21 Unkn own History pantoprazole 20 mg tablet,delayed 20 mg PO QDAY PRN GE RD 09/17/25 10/31/25 History release Lactobacillus 1 cap PO QDAY 10/14/25 Unkno wn History acidophilus-Bifidobac.animalis 10 billion cell capsule (Digestive Probiotic) aspirin 81 mg tablet 81 mg PO QDAY 10/14/2510/30 History calcium carbonate (Calcium 500) 500 mg PO QDAY 5 Unknown History Allergy/AdvReac Type Severity Reaction Status Date / Time tetracycline Allergy Hives Verified 10/31/25 09:53 Family History Father Colon cancer Hypertension Kidney disease Surgical History History of bilateral knee replacement History of lumpectomy of left breast H/O: hysterectomy History of tonsillectomy Social History Smoking Status: Never smoker alcohol intake: never substance use type: does not use Review of Systems (Anesthesia) ROS Narrative System reviewed and no additional complaints, except as documented.
[2025-10-31 10:38] LABS: Anion Gap 12 (5-15); BUN 10 mg/dL (4-19); BUN/Creat Ratio 13.4 RATIO (10-20); Calcium,Total 9.3 mg/dL (7.6-11.0); Carbon Dioxide 24.9 mmol/L (21.0-32.0); Chloride 104 mmol/L (98-108); Estimated Creatinine Clearance 96.62 ml/min (50-250); Glucose 108 mg/dL (70-99); Potassium 3.6 mmol/L (3.3-5.1)
--- NOTE | 2025-10-31 11:00 | CALC_PTH ---
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 Tamera Vela MD : 1960 BED: DIS: 10/31/2025 SPEC #: [id number] RECD: 10/31/25 12:37 STATUS: KATIE CABRERA #: [id number] MARY: 10/31/25 11:[address]: Tamera Vela DEPT: SURGICAL PATHOLOGY RECD BY: Jossy Olivera ENTERED: 10/31/25 13:50 SP TYPE: Calculi OTHR DR: Dr. Sloane Abernathy MD Tissues: CALCULI Procedures: Surgery Specimen Level I HEADER OPERATION: Cystoscopy, right ureteroscopy laser lithotripsy PRE-OP DIAGNOSIS: Calculus of kidney and ureter, flank pain TISSUE SUBMITTED: Renal calculi GROSS DIAGNOSIS A. Right ureter: - Urinary calculus submitted for chemical analysis (gross examination only) . COMMENT The calculus is submitted in its entirety for chemical stone analysis. The results from this study will be reported separately. GROSS DESCRIPTION A. Received in formalin labeled with the patient's name and date of . Designated as renal calculi is a 0.3 cm jarquin to light brown irregular calculus. No sections are submitted. The specimen is for gross examination only. The specimen is sent for stone analysis. PR [id number]
[2025-10-31] MEDS: Cefazolin 1 GM/5 ML Vial 2 GM IV (11:32)
[2025-10-31] MEDS: Midazolam 2 MG/2 ML Syringe IV (11:32)
[2025-10-31] MEDS: Lidocaine 1% (5 ml sdv) 5 ML Vial IV (11:39)
[2025-10-31] MEDS: fentaNYL 100 MCG/2 ML Ampul IV (11:44)
--- NOTE | 2025-10-31 12:27 | PCM.POST.ANE ---
Anesthesia: Postop Eval I Current Vital Signs Temperature: 97.3 F Pulse Rate: 80 Blood Pressure: 129/88 Respiratory Rate: 16 Pulse Ox: 95 Oxygen Delivery Method: Room Air Assessment Airway patent: Yes Spontaneous unlabored respirations: Yes Mental status: Awake and Calm nausea: No Vomiting: No Anesthesia Complication: No Fluid Hydration Crystalloid volume administer (ml): 900 Total IV fluid infused: 900 Progress Note Anesthesia document: Postop Eval 1 completed: Yes
--- NOTE | 2025-10-31 12:53 | POSTOPAN2_ITS ---
Anesthesia Postop Eval I Sum Postop Eval Completion status Anesthesia document: Postop Eval 1 completed: Yes Anesthesia Postop Eval I Summary Anesthesia Postop Eval I Summary: Anesthesia Postop Eval I: Assessment Summary Airway patent Yes 10/31/25 12:28 COUNCILLOR [employer].SHOF Spontaneous unlabored Yes 10/31/25 12:28 COUNCILLOR [employer].SHOF respirations Mental status Awake,Calm 10/31/25 12:28 COUNCILLOR [employer].SHOF nausea No 10/31/25 12:28 COUNCILLOR [employer].SHOF Vomiting No 10/31/25 12:28 COUNCILLOR [employer].SHOF Anesthesia Postop Eval I: Fluid Summary Crystalloid volume administer 900 10/31/25 12:28 COUNCILLOR [employer].SHOF (ml) Colloids volume administered ( ml) Blood Product volume administered (ml) Total IV fluid infused 900 10/31/25 12:28 COUNCILLOR [employer].SHOF Anesthesia Postop Eval I: Summary Notes Anesthesia Complication No 10/31/25 12:28 COUNCILLOR [employer].SHOF Anesthesia Complication Comment: Post-operative progress note Anesthesia: Postop Eval II Evaluation Mental status: Awake and Calm Pain Level: 1 nausea: No Vomiting: No Complications Anesthesia Complication: No
--- NOTE | 2025-10-31 12:53 | PCM.POSTANE2 ---
Anesthesia Postop Eval I Sum Postop Eval Completion status Anesthesia document: Postop Eval 1 completed: Yes Anesthesia Postop Eval I Summary Anesthesia Postop Eval I Summary: Anesthesia Postop Eval I: Assessment Summary Airway patent Yes 10/31/25 12:28 PHOTOGRAPH MOUNTER.SHOF Spontaneous unlabored Yes 10/31/25 12:28 PHOTOGRAPH MOUNTER.SHOF respirations Mental status Awake,Calm 10/31/25 12:28 PHOTOGRAPH MOUNTER.SHOF nausea No 10/31/25 12:28 PHOTOGRAPH MOUNTER.SHOF Vomiting No 10/31/25 12:28 PHOTOGRAPH MOUNTER.SHOF Anesthesia Postop Eval I: Fluid Summary Crystalloid volume administer 900 10/31/25 12:28 PHOTOGRAPH MOUNTER.SHOF (ml) Colloids volume administered ( ml) Blood Product volume administered (ml) Total IV fluid infused 900 10/31/25 12:28 PHOTOGRAPH MOUNTER.SHOF Anesthesia Postop Eval I: Summary Notes Anesthesia Complication No 10/31/25 12:28 PHOTOGRAPH MOUNTER.SHOF Anesthesia Complication Comment: Post-operative progress note Anesthesia: Postop Eval II Evaluation Mental status: Awake and Calm Pain Level: 1 nausea: No Vomiting: No Complications Anesthesia Complication: No
[2025-11-08 17:08] LABS: Ca Oxalate, Dihydrate 70 % (.); Ca Oxalate, Monohydrate 30 % (.)
== END 2025-10-31 13:46 | disposition home or self-care (01) ==
LOC: SDC 09:28 → AC 09:30
PROVIDERS: PCP Family Medicine; Referring Provider Urology; Visit Provider Urology
PROC: 0TJ98ZZ Inspection of Ureter, Via Natural or Artificial Opening Endoscopic (ICD-10-PCS; CPT 52352; principal; 2025-10-31 10:45)
DX: N20.2 Calculus of kidney with calculus of ureter (principal); I10 Essential (primary) hypertension; N39.0 Urinary tract infection, site not specified; Z85.3 Personal history of malignant neoplasm of breast; Z87.442 Personal history of urinary calculi; Z90.710 Acquired absence of both cervix and uterus; R10.A0 Flank pain, unspecified side
CPT/HCPCS: 52356; 76000; 80048; 82360; 85025; 88300; 93005; C1769; C2617; J2405